=== PATIENT | female | born 1985 | race Caucasian/White ===

== ENCOUNTER 2016-07-31 14:07 | Emergency (ER) | payer BC ==
[~2016-07-31] VITALS: Ht 160 cm; Wt 62.0 kg
[~2016-07-31 14:07] MED LIST: BCPILLS PO
[2016-07-31 14:09] VITALS: Ht 160 cm; Wt 62.0 kg
[2016-07-31 16:16] VITALS: O2SAT 100
--- NOTE | 2016-07-31 16:28 | DIAGNOSTIC IMAGING REPORT ---
CHEST ONE VIEW PORTABLE CLINICAL HISTORY: Atypical chest pain and shortness of breath COMPARISON STUDY: No previous studies for comparison. FINDINGS: The cardiac and mediastinal contours are normal. There is no evidence of focal pulmonary consolidation. There is no evidence of failure. No pleural effusions are visualized.[ IMPRESSION: No active disease in the chest. Electronically signed by: Woody Martinez M.D. 07/31/2016 4:26 PM
[2016-07-31 16:34] LABS: HEMATOCRIT 40.4 % (37-47); MEAN CORPUSCULAR HEMOGLOBIN 31.7 pg (25-34); MEAN CORPUSCULAR HGB CONC 34.4 g/dl (32-36); MEAN PLATELET VOLUME 11.2 fL (7.4-10.4); PLATELET COUNT 187 K/uL (130-400); RED BLOOD COUNT 4.39 M/uL (4.2-5.4); WHITE BLOOD COUNT 9.34 K/uL (4.8-10.8)
--- NOTE | 2016-07-31 16:35 | EMERGENCY ROOM VISIT NOTE ---
History First contact with patient: 16:07 Chief Complaint: CHEST PAIN Stated Complaint: CHEST PAIN,SOB Nursing Triage Summary: pt c/o chest pain started at 1230 today. feels sob . denies any n/v. denies nay previous heart problems History of Present Illness The patient is a 31 year old female who presents to the Emergency Room with complaints of chest Pain started at 12:20 - patient was napping at the time, she is unsure if pain or waking came first Pain described as left-sided baseline tightness/discomfort, with occasional sharp knife-like pain lasting 5 -10 seconds that is associated with radiation to left arm and back. The sharpness comes on by any movement of shoulder, bending forward at the waist, ambulating and patient has even had a few episodes of sharp pain at rest. Sharp pain relieved by staying still. Episodes of pain have been associated with SOB, nausea and diaphoresis She is otherwise eating well and tolerating diet. No issues with bowel or urination. No personal cardiac history except for a regularly Irregular heart beat in childhood, not being followed up. Fam history significant for brothers x 2 with HTN. Never smoker, takes propranolol for migraine, zoloft fro depression No recent flight, although has had long commutes: drove 1.5hours to [facility] yesterday, and drove to [place] last week. No OCP/HRT. No DVT/PE history Leg doppler done a few months ago when admitted for bronchiolitis with CP secondary to coughing, and was on OCP at that time Review of Systems See HPI for pertinent positives and negatives. A total of ten systems were reviewed and were otherwise negative. Past Medical/Surgical History Medical Problems: (1) Contusion of left foot (2) Depression (3) Migraine headache Social History Smoking Status: Never Smoker Current/Historical Medications Scheduled Calcium Carbonate-Vitamin D (Calcium 500 + D), 1 TAB PO DAILY Magnesium (Magnesium), 200 MG PO DAILY Multiple Vitamins W/ Minerals (Womens One Daily), 1 TAB PO DAILY Propranolol (Inderal), 60 MG PO DAILY Sertraline (Zoloft), 50 MG PO DAILY Sumatriptan Succinate (Imitrex Statdose), 1 DOSE INH PRN UD Scheduled PRN Acetaminophen/Codeine (Tylenol W/Codeine #3), 1-2 TAB PO PRN UD PRN for Pain Ibuprofen (Motrin), 800 MG PO Q8H PRN for Pain Allergies Coded Allergies: Sulfamethoxazole w/Trimethoprim (Verified Allergy, Unknown, hives, 10/27/15 ) Uncoded Allergies: SULFA (Allergy, Unknown, HIVES, 08/23/03) Physical Exam Vital Signs Date Time Temp Pulse Resp B/P Pulse Ox O2 Delivery O2 Flow Rate FiO2 07/31/16 18:52 37.1 71 18 100/57 100 07/31/16 18:52 69 18 110/54 100 Room Air 07/31/16 16:21 71 07/31/16 16:18 37.1 64 18 100/57 100 Room Air 07/31/16 16:16 100 Room Air 07/31/16 16:13 64 18 100/57 100 Room Air 07/31/16 14:09 37.1 91 18 113/72 99 Room Air Physical Exam GENERAL: alert, well appearing, thin, sitting in bed, no acute distress, non- toxic HEAD: Normocephalic, atraumatic. No sinus tenderness. EYES: PERRL, EOMI, normal conjunctiva OROPHARYNX: no exudate, no erythema, lips, buccal mucosa, and tongue normal and mucous membranes are moist NECK: supple, no nuchal rigidity, no adenopathy, non-tender LUNGS: Clear to auscultation. Normal chest wall mechanics, good air entry. No crepitations, crackles, or wheezes HEART: no murmurs, S1 normal and S2 normal CHEST: Tenderness on palpation of left chest. ABDOMEN: abdomen soft, non-tender, normo-active bowel sounds, no masses, no rebound or guarding. BACK: Back is symmetrical on inspection, no deformities, no midline tenderness, no CVA tenderness. SKIN: Warm, pink, dry. No erythema, rashes, or bruising. EXTREMITIES: Grossly normal. Moving all 4 limbs, Chest pain exacerbated by shoulder abduction, flexion, internal and external rotation No pitting edema. Calves non tender. NEURO: Alert, Ox3. No focal deficits. Normal sensorium, cranial nerves II-XII grossly intact, normal speech. PSYCH: Mood and affect appropriate. Medical Decision & Procedures ER Provider Diagnostic Interpretation: CHEST ONE VIEW PORTABLE CLINICAL HISTORY: Atypical chest pain and shortness of breath COMPARISON STUDY: No previous studies for comparison. FINDINGS: The cardiac and mediastinal contours are normal. There is no evidence of focal pulmonary consolidation. There is no evidence of failure. No pleural effusions are visualized.[ IMPRESSION: No active disease in the chest. Laboratory Results 07/31/16 16:15 07/31/16 16:15 Test 07/31/16 16:15 07/31/16 16:53 07/31/16 17:47 Red Blood Count 4.39 M/uL (4.2-5.4) Mean Corpuscular Volume 92.0 fL (80-100) Mean Corpuscular Hemoglobin 31.7 pg (25-34) Mean Corpuscular Hemoglobin Concent 34.4 g/dl (32-36) RDW Standard Deviation 41.9 fL (36.4-46.3) RDW Coefficient of Variation 12.4 % (11.5-14.5) Mean Platelet Volume 11.2 fL (7.4-10.4) Prothrombin Time 10.0 SECONDS (9.0-12.0) Prothromb Time International Ratio 0.9 (0.9-1.1) Activated Partial Thromboplast Time 26.2 SECONDS (21.0-31.0) Partial Thromboplastin Ratio 1.0 Anion Gap 6.0 mmol/L (3-11) Est Creatinine Clear Calc Drug Dose 86.7 ml/min Estimated GFR () 118.4 Estimated GFR (Non- 102.2 BUN/Creatinine Ratio 15.9 (10-20) Calcium Level 8.4 mg/dl (8.5-10.1) Total Bilirubin 0.3 mg/dl (0.2-1) Aspartate Amino Transf (AST/SGOT) 14 U/L (15-37) Alanine Aminotransferase (ALT/SGPT) 28 U/L (12-78) Alkaline Phosphatase 93 U/L (45-117) Total Creatine Kinase 41 U/L (26-192) Creatine Kinase MB 0.7 ng/ml (0.5-3.6) Creatine Kinase MB Ratio 1.7 (0-3.0) Troponin I < 0.015 ng/ml (0-0.045) Total Protein 6.7 gm/dl (6.4-8.2) Albumin 3.5 gm/dl (3.4-5.0) Globulin 3.2 gm/dl (2.5-4.0) Albumin/Globulin Ratio 1.1 (0.9-2) Bedside D-Dimer 92 ng/mlFEU (0-450) Bedside Troponin I 0.000 ng/ml (0-0.045) Urine Color YELLOW Urine Appearance TURBID (CLEAR) Urine pH 7.5 (4.5-7.5) Urine Specific [place] 1.018 (1.000-1.030) Urine Protein NEG (NEG) Urine Glucose (UA) NEG (NEG) Urine Ketones NEG (NEG) Urine Occult Blood NEG (NEG) Urine Nitrite NEG (NEG) Urine Bilirubin NEG (NEG) Urine Urobilinogen NEG (NEG) Urine Leukocyte Esterase NEG (NEG) Urine WBC (Auto) 0 /hpf (0-5) Urine RBC (Auto) 0-4 /hpf (0-4) Urine Hyaline Casts (Auto) 1-5 /lpf (0-5) Urine Epithelial Cells (Auto) 20-30 /lpf (0-5) Urine Bacteria (Auto) NEG (NEG) Urine Test NEG (NEG) Medications Administered Medications (Trade) Dose Ordered Sig/Bri Route Start Time Stop Time Status Last Admin Dose Admin Ketorolac Tromethamine (Toradol Inj) 30 mg NOW STAT IV 07/31/16 16:57 07/31/16 16:58 DC 07/31/16 17:26 30 MG Medical Decision 31 year old female presented with left sided chest pain The patient was evaluated in room C11. A complete history and physical exam was performed. Differential diagnoses includes but is not limited to acute coronary syndrome, myocardial infarction, pericarditis, pulmonary embolus, aortic dissection, pneumonia, pneumothorax, musculoskeletal, shingles, esophageal. Patient was given 30mg IV Toradol for symptom relief. EKG showed showed NSR, without sign of ischemia, unchanged from previous studies. Lab work was performed. CBC, BMP, LFT, coagulation profile, cardiac enzymes, and d-dimer were all within normal limits. CXR reported no acute lung pathology Urine screen was negative for , and urinalysis showed contamination and no evidence of urinary infection. Likely diagnosis is musculoskeletal chest pain. As such, patient prescribed advised for conservative management with Tylenol or Motrin for pain relief and advised to follow up with PCP for shoulder assessment on outpatient basis. Patient understands and agreeable with care plan. Patient discharged home well. Impression Primary Impression: Musculoskeletal chest pain Departure Information Referrals Justus Pérez M.D. (PCP) Patient Instructions A Signature Page, My [facility]
[2016-07-31 16:46] LABS: INR 0.9 (0.9-1.1)
[2016-07-31 16:47] LABS: CHLORIDE 105 mmol/L (98-107); POTASSIUM 3.7 mmol/L (3.5-5.1); SODIUM 141 mmol/L (136-145)
[2016-07-31 16:52] LABS: ALT/SGPT 28 U/L (12-78); AST/SGOT 14 U/L (15-37); BLOOD UREA NITROGEN 12 mg/dl (7-18); BUN/CREATININE RATIO 15.9 (10-20); CALCIUM 8.4 mg/dl (8.5-10.1); CARBON DIOXIDE 30 mmol/L (21-32); CREATININE 0.77 mg/dl (0.60-1.20); GLUCOSE 71 mg/dl (70-99)
[2016-07-31 16:57] LABS: ALB/GLOB RATIO 1.1 (0.9-2); ALKALINE PHOSPHATASE 93 U/L (45-117); CKMB/CK RATIO 1.7 (0-3.0)
[2016-07-31] MEDS ORDERED: KETOROLAC TROMETHAMINE 30 MG/ML VIAL IV STA (16:57)
[2016-07-31] MEDS ORDERED: SUMA6KIT INH (17:12)
[2016-07-31] MEDS ORDERED: IBUP-1428 PO (17:12)
[2016-07-31] MEDS ORDERED: ACET-749 PO (17:12)
[2016-07-31 18:21] LABS: URINE APPEARANCE TURBID (CLEAR); URINE BILIRUBIN NEG (NEG); URINE COLOR YELLOW; URINE EPITHELIAL CELL AUTO 20-30 /lpf (0-5); URINE NITRITE NEG (NEG); URINE PH 7.5 (4.5-7.5); URINE SPECIFIC GRAVITY 1.018 (1.000-1.030); UROBILINOGEN NEG (NEG)
[2016-07-31 18:22] LABS: MANUAL MICROSCOPIC REQUIRED? NO; REVIEW REQ? NO
[2016-07-31] MEDS ORDERED: PROP1TAB PO (18:35)
[2016-07-31 18:52] VITALS: BP 110/54; PULSE 69; TEMP 37.1; O2SAT 100
[2016-07-31] MEDS ORDERED: MULT-240 PO (21:14)
[2016-07-31] MEDS ORDERED: MAGN200T3 PO (21:14)
[2016-07-31] MEDS ORDERED: CALCTAB65 PO (21:14)
[2016-07-31] MEDS ORDERED: SERT50TA PO (21:14)
--- NOTE | 2016-08-03 14:13 | EMERGENCY ROOM VISIT NOTE ---
History Report prepared by Thao: Cathy Hernandez Under the Supervision of: Dr. Erick Jaquez M.D. First contact with patient: 16:07 Chief Complaint: CHEST PAIN Stated Complaint: CHEST PAIN,SOB Nursing Triage Summary: pt c/o chest pain started at 1230 today. feels sob . denies any n/v. denies nay previous heart problems History of Present Illness The patient is a 31 year old female who presents to the Emergency Room with complaints of constant left sided chest pain for the past 4 hours. She was taking a nap and developed pain that woke her up. She notes shortness of breath , nausea, and diaphoresis. She describes her pain as a dull pressure and rates her current pain as a 1/10 in severity. Her pain is exacerbated by movement and ambulation. It radiates into her left shoulder and back. The patient denies abdominal pain, vomiting, fever, chills, headache, palpitations, chance of , and pain or swelling in her legs. She denies any significant cardiac history. She denies any recent long flights but notes some long commutes. She denies doing anything unusual to injure her chest. 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 A total of 10 systems reviewed and were otherwise negative. Past Medical & Surgical Medical Problems: (1) Contusion of left foot (2) Depression (3) Migraine headache Old medical records were reviewed. Nurse's notes were reviewed and I agree with. Family History FH: heart disease Hypertension Social History Smoking Status: Never Smoker Smokeless Tobacco Use: No Alcohol Use: occasionally Drug Use: none Marital Status: Housing Status: lives with family Occupation Status: employed Current/Historical Medications Scheduled Calcium Carbonate-Vitamin D (Calcium 500 + D), 1 TAB PO DAILY Magnesium (Magnesium), 200 MG PO DAILY Multiple Vitamins W/ Minerals (Womens One Daily), 1 TAB PO DAILY Propranolol (Inderal), 60 MG PO DAILY Sertraline (Zoloft), 50 MG PO DAILY Sumatriptan Succinate (Imitrex Statdose), 1 DOSE INH PRN UD Scheduled PRN Acetaminophen/Codeine (Tylenol W/Codeine #3), 1-2 TAB PO PRN UD PRN for Pain Ibuprofen (Motrin), 800 MG PO Q8H PRN for Pain Allergies Coded Allergies: Sulfamethoxazole w/Trimethoprim (Verified Allergy, Unknown, hives, 10/27/15 ) Uncoded Allergies: SULFA (Allergy, Unknown, HIVES, 08/23/03) Physical Exam Vital Signs Date Time Temp Pulse Resp B/P Pulse Ox O2 Delivery O2 Flow Rate FiO2 07/31/16 18:52 37.1 71 18 100/57 100 07/31/16 18:52 69 18 110/54 100 Room Air 07/31/16 16:21 71 07/31/16 16:18 37.1 64 18 100/57 100 Room Air 07/31/16 16:16 100 Room Air 07/31/16 16:13 64 18 100/57 100 Room Air 07/31/16 14:09 37.1 91 18 113/72 99 Room Air Physical Exam General: Well developed well nourished non ill appearing young female in no acute distress, breathing comfortably on room air. Normal speech HEENT: Normal cephalic atraumatic. Pupils are equal round and reactive to light. Extraocular movements are intact. Oropharynx is pink with moist mucous membranes. No swelling of the mouth lips or tongue. Neck: Supple with a midline trachea. No meningeal signs or stiffness, no JVD or bruits. No Stridor. Chest: Clear to auscultation bilaterally. No wheezes or rhonchi. No increased work of breathing. Tender to palpation of the left chest. Heart: regular rate and rhythm. Abdomen: Soft nontender, nondistended without rebound guarding or rigidity. Extremities: No cyanosis clubbing or edema. No calf tenderness or assymetry Spine/Back. Non tender to palpation. No CVA tenderness Skin: Good turgor without rashes. Neurologic exam: Cranial nerves two through 12 are intact. Motor and sensation are intact and symmetrical throughout. Medical Decision & Procedures ER Provider Diagnostic Interpretation: Radiology results as stated below per my review and radiologist interpretation: CHEST ONE VIEW PORTABLE CLINICAL HISTORY: Atypical chest pain and shortness of breath COMPARISON STUDY: No previous studies for comparison. FINDINGS: The cardiac and mediastinal contours are normal. There is no evidence of focal pulmonary consolidation. There is no evidence of failure. No pleural effusions are visualized.[ IMPRESSION: No active disease in the chest. Electronically signed by: Woody Martinez M.D. 07/31/2016 4:26 PM Laboratory Results 07/31/16 16:15 07/31/16 16:15 Test 07/31/16 16:15 07/31/16 16:53 07/31/16 17:47 Red Blood Count 4.39 M/uL (4.2-5.4) Mean Corpuscular Volume 92.0 fL (80-100) Mean Corpuscular Hemoglobin 31.7 pg (25-34) Mean Corpuscular Hemoglobin Concent 34.4 g/dl (32-36) RDW Standard Deviation 41.9 fL (36.4-46.3) RDW Coefficient of Variation 12.4 % (11.5-14.5) Mean Platelet Volume 11.2 fL (7.4-10.4) Prothrombin Time 10.0 SECONDS (9.0-12.0) Prothromb Time International Ratio 0.9 (0.9-1.1) Activated Partial Thromboplast Time 26.2 SECONDS (21.0-31.0) Partial Thromboplastin Ratio 1.0 Anion Gap 6.0 mmol/L (3-11) Est Creatinine Clear Calc Drug Dose 86.7 ml/min Estimated GFR () 118.4 Estimated GFR (Non- 102.2 BUN/Creatinine Ratio 15.9 (10-20) Calcium Level 8.4 mg/dl (8.5-10.1) Total Bilirubin 0.3 mg/dl (0.2-1) Aspartate Amino Transf (AST/SGOT) 14 U/L (15-37) Alanine Aminotransferase (ALT/SGPT) 28 U/L (12-78) Alkaline Phosphatase 93 U/L (45-117) Total Creatine Kinase 41 U/L (26-192) Creatine Kinase MB 0.7 ng/ml (0.5-3.6) Creatine Kinase MB Ratio 1.7 (0-3.0) Troponin I < 0.015 ng/ml (0-0.045) Total Protein 6.7 gm/dl (6.4-8.2) Albumin 3.5 gm/dl (3.4-5.0) Globulin 3.2 gm/dl (2.5-4.0) Albumin/Globulin Ratio 1.1 (0.9-2) Bedside D-Dimer 92 ng/mlFEU (0-450) Bedside Troponin I 0.000 ng/ml (0-0.045) Urine Color YELLOW Urine Appearance TURBID (CLEAR) Urine pH 7.5 (4.5-7.5) Urine Specific [place] 1.018 (1.000-1.030) Urine Protein NEG (NEG) Urine Glucose (UA) NEG (NEG) Urine Ketones NEG (NEG) Urine Occult Blood NEG (NEG) Urine Nitrite NEG (NEG) Urine Bilirubin NEG (NEG) Urine Urobilinogen NEG (NEG) Urine Leukocyte Esterase NEG (NEG) Urine WBC (Auto) 0 /hpf (0-5) Urine RBC (Auto) 0-4 /hpf (0-4) Urine Hyaline Casts (Auto) 1-5 /lpf (0-5) Urine Epithelial Cells (Auto) 20-30 /lpf (0-5) Urine Bacteria (Auto) NEG (NEG) Urine Test NEG (NEG) Laboratory studies as stated above per my review. Medications Administered Medications (Trade) Dose Ordered Sig/Bri Route Start Time Stop Time Status Last Admin Dose Admin Ketorolac Tromethamine (Toradol Inj) 30 mg NOW STAT IV 07/31/16 16:57 07/31/16 16:58 DC 07/31/16 17:26 30 MG ECG Indication: chest pain Rate (beats per minute): 58 Rhythm: sinus bradycardia Findings: no acute ischemic change, no ectopy, other (normal intervals) Comparison ECG Date: no prior available ED Course 1607: Past medical records reviewed. The patient was evaluated in room B12B, and a complete history and physical examination were performed. 1657: Toradol 30 mg IV 1814: I reassessed the patient at this time. She is feeling better and resting comfortably. I discussed the results and treatment plan with the patient. I answered all pertaining questions that she had. She expressed understanding and verbalized agreement. The patient will be discharged home. Medical Decision Differential diagnoses includes musculoskeletal, PE, acute coronary syndrome, arrhythmia, pneumothorax. This patient comes in as described above. She was placed on a magnetic tester in room B12. I have evaluated this patient as has my resident. Please also refer to her note as well. This patient has had some chest pain that is reproducible upon movement and palpation. She has minimal cardiac risk factors. IV access was established and an extensive workup was done to rule out cardiac, pulmonary, and embolic etiologies among other causes. EKG does not suggest acute coronary syndrome or arrhythmia. Cardiac enzymes are not elevated. In light of this, I think a cardiac event is highly unlikely. Her d- dimer is within normal limits and with a low pretest probability makes PE highly unlikely as well. Chest x-ray does not show any obvious to suggest congestive heart failure, pneumonia, or pneumothorax. She has no acute electrolyte or metabolic abnormalities. She is not . Most likely this is musculoskeletal. I encouraged her to return if she has worsening of symptoms , increasing pain, any new problems or concerns. She should also follow up with her doctor this week for recheck. She is happy with plan and discharged to home. Impression Primary Impression: Musculoskeletal chest pain Additional Impression: Costochondritis Scribe Attestation The scribe's documentation has been prepared under my direction and personally reviewed by me in its entirety. I confirm that the note above accurately reflects all work, treatment, procedures, and medical decision making performed by me. Departure Information Dispostion Home / Self-Care Referrals Justus Pérez M.D. (PCP) Forms HOME CARE DOCUMENTATION FORM, IMPORTANT VISIT INFORMATION Patient Instructions A Signature Page, ED Chest Wall Pain Tay Bronson, My [facility] Additional Instructions You were seen today in ED for chest pain. Clinical history and examination along with blood work to rule out more urgent conditions (such a coronary event or pulmonary embolism) have lead us to believe that your symptoms are likely secondary to musculoskeletal strain. As such, it is recommended that you use warm compress on the area as well as over the counter pain medication such as: - Regular strength (325mg/tab) Tylenol (acetaminophen) 2 tabs every 4-6 hours as needed. Do not exceed 12 tablets in a 24 hour period. Avoid taking more than 4 grams (4000 mg) of Tylenol per day. This includes any other sources of acetaminophen you may take on a regular basis. - Regular strength (200 mg/tab) Advil (ibuprofen) 1-2 tabs every 4-6 hours as needed. Do not exceed a dose of 3200 mg per day. Follow up with your PCP would be advisable in 1-2 weeks times, especially if there is no or minimal improvement in symptoms. In that scenario, further assessment of your chest wall/shoulder may be required on an outpatient basis. You have been examined and treated today on an emergency basis only. This is not a substitute for, or an effort to provide, complete comprehensive medical care. It is impossible to recognize and treat all injuries or illnesses in a single emergency department visit. It is therefore important that you make a follow up with your physician for close monitoring. Return for worsening symptoms or if you develop fever, vomiting, or any other concerning symptoms.
[2017-04-18] MEDS ORDERED: PRENTAB26 PO (10:45)
[2017-04-18] MEDS ORDERED: ACET-1311 PO (10:53)
[2017-04-20] MEDS ORDERED: OXYC-57 PO (07:52)
[2017-04-20] MEDS ORDERED: MTR600X PO (07:52)
== END 2016-07-31 18:53 | disposition home or self-care (01) ==
LOC: C.EDB 14:09
DX: R07.89 Other chest pain (principal); F32.9 Major depressive disorder, single episode, unspecified; Z79.899 Other long term (current) drug therapy

== ENCOUNTER → 2016-09-07 | Outpatient (CLI) | payer BC ==
[~2016-09-07] MED LIST changes: +ACET-1311 PO; +ACET-749 PO; -BCPILLS PO; +CALCTAB65 PO; +IBUP-1428 PO; +MAGN200T3 PO; +MTR600X PO; +MULT-240 PO; +OXYC-57 PO; +PRENTAB26 PO; +PROP1TAB PO; +SERT50TA PO; +SUMA6KIT INH
[2016-09-07 14:57] LABS: URINE APPEARANCE CLEAR (CLEAR); URINE BILIRUBIN NEG (NEG); URINE COLOR YELLOW; URINE NITRITE NEG (NEG); URINE PH 7.5 (4.5-7.5); URINE SPECIFIC GRAVITY 1.002 (1.000-1.030); UROBILINOGEN NEG (NEG)
[2016-09-07 15:02] LABS: MANUAL MICROSCOPIC REQUIRED? NO; REVIEW REQ? NO
[2016-09-11 11:57] LABS: CHLAMYDIA TRACH RNA*** NOT DETECTED (NOT DETECTED); GC (NEIS GONORRHOEAE)RNA** NOT DETECTED (NOT DETECTED)
== END | disposition home or self-care (01) ==
LOC: C.LABSPEC 14:16
PROVIDERS: ATTEND Obstetrics & Gynecology
DX: O09.621 Supervision of young multigravida, first trimester (principal); Z3A.00 Weeks of gestation of pregnancy not specified

== ENCOUNTER → 2016-09-07 | Outpatient (CLI) | payer BC ==
[2016-09-07 13:04] LABS: BASO % 0.4 %; BASO ABS # 0.04 K/uL (0-0.2); COMPLETE YES; EOS % 0.3 %; HEMATOCRIT 41.3 % (37-47); IG% 0.2 %; LYMPH % 36.6 %; LYMPH ABS # 3.26 K/uL (1.2-3.4); MEAN CORPUSCULAR HEMOGLOBIN 30.7 pg (25-34); MEAN CORPUSCULAR HGB CONC 34.1 g/dl (32-36); MEAN PLATELET VOLUME 11.3 fL (7.4-10.4); MONO % 7.6 %; NEUT % 54.9 %; PLATELET COUNT 205 K/uL (130-400); RED BLOOD COUNT 4.59 M/uL (4.2-5.4)
== END | disposition home or self-care (01) ==
LOC: C.LAB1850 11:43
PROVIDERS: ATTEND Obstetrics & Gynecology
DX: O09.621 Supervision of young multigravida, first trimester (principal); Z3A.00 Weeks of gestation of pregnancy not specified

== ENCOUNTER → 2016-11-09 | Outpatient (CLI) | payer BC ==
[2016-11-09 15:32] LABS: GTGD 50 Grams
== END | disposition home or self-care (01) ==
LOC: C.LAB1850 10:04
PROVIDERS: ATTEND Obstetrics & Gynecology
DX: Z34.82 Encounter for supervision of other normal pregnancy, second trimester (principal)

== ENCOUNTER → 2017-02-01 | Outpatient (CLI) | payer BC ==
[2017-02-01 12:18] LABS: URINE APPEARANCE CLEAR (CLEAR); URINE BILIRUBIN NEG (NEG); URINE COLOR DK YELLOW; URINE EPITHELIAL CELL AUTO >30 /lpf (0-5); URINE NITRITE NEG (NEG); URINE PH 7.5 (4.5-7.5); URINE SPECIFIC GRAVITY 1.023 (1.000-1.030); UROBILINOGEN NEG (NEG)
[2017-02-01 12:22] LABS: MANUAL MICROSCOPIC REQUIRED? NO; REVIEW REQ? NO
[2017-02-01 14:12] LABS: GTGD 50 Grams
== END | disposition home or self-care (01) ==
LOC: C.LAB1850 09:33
PROVIDERS: ATTEND Obstetrics & Gynecology
DX: Z34.83 Encounter for supervision of other normal pregnancy, third trimester (principal)

== ENCOUNTER → 2017-03-29 | Outpatient (CLI) | payer BC | END | disposition home or self-care (01) | LOC: C.LABSPEC 13:55 | PROVIDERS: ATTEND Obstetrics & Gynecology | DX: Z34.83 Encounter for supervision of other normal pregnancy, third trimester (principal) ==

== ENCOUNTER 2017-04-19 05:28 | Inpatient (IN) | payer BC ==
--- NOTE | 2017-04-18 11:21 | PAT Medication Instructions ---
Service Date Apr 18, 2017. Current Home Medication List Acetaminophen (Tylenol), 650 MG PO prn Acetaminophen/Codeine (Tylenol W/Codeine #3), 1-2 TAB PO PRN UD PRN for Pain Calcium Carbonate-Vitamin D (Calcium 500 + D), 1 TAB PO QAM Magnesium (Magnesium), 200 MG PO QAM Multivit/Min/Iron/Fol Ac/Pren ( Vitamin), 1 TAB PO QAM Medication Instructions For Your Scheduled Surgery - Hold the following medications the morning of surgery: Calcium Carbonate-Vitamin D (Calcium 500 + D), 1 TAB PO QAM Magnesium (Magnesium), 200 MG PO QAM Multivit/Min/Iron/Fol Ac/Pren ( Vitamin), 1 TAB PO QAM - Take the following medications the morning of surgery with a sip of water: Acetaminophen (Tylenol), 650 MG PO prn (can take if needed up to 4 hours before surgery) Acetaminophen/Codeine (Tylenol W/Codeine #3), 1-2 TAB PO PRN UD PRN for Pain ( can take if needed up to 4 hours before surgery) - Take the following medications as scheduled the night before surgery: Acetaminophen (Tylenol), 650 MG PO prn Acetaminophen/Codeine (Tylenol W/Codeine #3), 1-2 TAB PO PRN UD PRN for Pain If you have any questions please call us at [phone] or [phone] or [phone]
[2017-04-18 11:52] LABS: BASO % 0.1 %; BASO ABS # 0.01 K/uL (0-0.2); COMPLETE YES; EOS % 0.4 %; HEMATOCRIT 33.4 % (37-47); IG% 0.2 %; LYMPH % 26.7 %; LYMPH ABS # 2.17 K/uL (1.2-3.4); MEAN CELL VOLUME 84.1 fL (80-100); MEAN CORPUSCULAR HEMOGLOBIN 26.2 pg (25-34); MEAN CORPUSCULAR HGB CONC 31.1 g/dl (32-36); MEAN PLATELET VOLUME 12.2 fL (7.4-10.4); MONO % 6.9 %; NEUT % 65.7 %; PLATELET COUNT 150 K/uL (130-400); RED BLOOD COUNT 3.97 M/uL (4.2-5.4); WHITE BLOOD COUNT 8.12 K/uL (4.8-10.8)
--- NOTE | 2017-04-18 17:55 | HISTORY & PHYSICAL EXAMINATION ---
DATE OF ADMISSION: 04/19/2017 PRINCIPAL DIAGNOSIS: Intrauterine at 39 weeks, prior section x3, for repeat section with bilateral tubal ligation. HISTORY OF PRESENT ILLNESS: The patient is a 31-year-old 4, para 3-0-0-3 white female, EDC of 04/24/2017 who presents at 39 and 2/7 weeks for repeat section. She is also requesting permanent sterilization for undesired fertility and multiparity. Her otherwise has been uncomplicated except for the prior 3 sections. She understands the risks of procedure and is willing to proceed. PAST MEDICAL HISTORY: Significant for depression, but not on any meds at this time. Migraine headaches without any prescription meds. PAST SURGICAL HISTORY: section x3, the most recent in 2013. Laparoscopic ovarian cystectomy and wisdom teeth removed. ALLERGIES: SULFA MEDICATIONS, WHICH CAUSE SWELLING. SOCIAL HISTORY: She does not smoke or drink. OBSTETRICAL AND GYNECOLOGICAL HISTORY: Periods are every 35 days and regular. Pap smears have been within normal limits. There is no history of PID, VD or herpes. Three sections, the first one was done in 2009 for failure to progress and then repeat cesareans at 41 weeks on her following 2 pregnancies. HISTORY: Blood type is O positive. Antibody screen is negative. Rubella is immune. RPR is nonreactive. Hepatitis is negative. HIV is negative. dates were confirmed by early first trimester ultrasound. Chlamydia and GC were negative. Glucolas have been within normal limits. Anatomy scan is complete and normal. Hemoglobin at 28 weeks is 12.3, hematocrit of 37.0. Group B strep was positive. FAMILY HISTORY: Noncontributory. PHYSICAL EXAMINATION: VITAL SIGNS: Blood pressure is 130/78. GENERAL: She is a well-nourished, well-developed white female in no apparent distress. LUNGS: Clear to auscultation. HEART: Regular rate and rhythm. No murmurs or gallops. ABDOMEN: Gravid with a fundal height of 36 cm. There is no hepatosplenomegaly or masses palpable. She has a well-healed low transverse skin incision. PELVIC: Deferred today. EXTREMITIES: With trace edema. No calf tenderness present. ASSESSMENT: A 31-year-old 4, para 3-0-0-3, prior section x3, presents for repeat section and bilateral tubal ligation. She understands the risks of procedure and is willing to proceed. Please see the orders for further directions.
[2017-04-19] VITALS (15 sets, daily range): BP systolic 109–128; BP diastolic 62–77; PULSE 44–60; TEMP 36.3–36.6; O2SAT 98–100; Ht 152.4 cm; Wt 77.3 kg
[~2017-04-19] VITALS: Ht 152.4 cm; Wt 77.3 kg
[~2017-04-19 05:28] MED LIST changes: -IBUP-1428 PO; -MTR600X PO; -MULT-240 PO; -OXYC-57 PO; -PROP1TAB PO; -SERT50TA PO; -SUMA6KIT INH
[2017-04-19] MEDS ORDERED: CITRIC ACID/SODIUM CITRATE 15 ML UDC PO STA (05:47)
[2017-04-19] MEDS ORDERED: CEFAZOLIN IV 2,000 MG in DEXTROSE 5% 50ML 50 ML IV SCH (06:00)
[2017-04-19] MEDS: LACTATED RINGER'S 1000ML 1,000 ML IV SCH ×2 (06:09→15:38)
[2017-04-19 06:27] LABS: BASO % 0.2 %; BASO ABS # 0.02 K/uL (0-0.2); COMPLETE YES; EOS % 0.7 %; HEMATOCRIT 37.3 % (37-47); IG% 0.4 %; LYMPH % 33.8 %; LYMPH ABS # 2.89 K/uL (1.2-3.4); MEAN CELL VOLUME 83.4 fL (80-100); MEAN CORPUSCULAR HEMOGLOBIN 25.7 pg (25-34); MEAN CORPUSCULAR HGB CONC 30.8 g/dl (32-36); MEAN PLATELET VOLUME 11.7 fL (7.4-10.4); MONO % 9.3 %; NEUT % 55.6 %; PLATELET COUNT 164 K/uL (130-400); RED BLOOD COUNT 4.47 M/uL (4.2-5.4); WHITE BLOOD COUNT 8.54 K/uL (4.8-10.8)
[2017-04-19] MEDS ORDERED: INFLUENZA VIRUS QUAD VACCINE 0.5 ML SYR IM. ONE (06:30)
[2017-04-19] MEDS ORDERED: INFLUENZA ADMINISTRATION CHARGE ONE (06:30)
[2017-04-19] MEDS ORDERED: ONDANSETRON INJ 2 MG/ML 2 ML VIAL ONE (06:50)
[2017-04-19] MEDS ORDERED: OXYTOCIN INJ 10 UNITS/ML VIAL ONE (06:50)
[2017-04-19] MEDS ORDERED: PHENYLEPHRINE HCL INJ 10 MG/ML VIAL ONE (06:50)
[2017-04-19] MEDS ORDERED: MoRPHine SULFATE PF 1 MG/ML 10 ML AMP/VIAL ONE (06:51)
--- NOTE | 2017-04-19 07:26 | History & Physical Bridge Note ---
H&P Re-Evaluation Bridge Note: I have examined the patient, reviewed the History & Physical and in the interval since the performance of the History & Physical I have noted the following changes of clinical significance: No changes noted
[2017-04-19] MEDS ORDERED: EpHEDrine SULFATE 50MG/5ML SYR ONE (08:36)
[2017-04-19] MEDS ORDERED: KETOROLAC TROMETHAMINE 30 MG/ML VIAL ONE (08:39)
--- NOTE | 2017-04-19 08:54 | [facility] Post Operative Brief Note ---
Immediate Operative Summary Operative Date Apr 19, 2017. Pre-Operative Diagnosis 1. IUP at 39 weeks, prior section X 3; for repeat section with bilateral tubal ligation. Post-Operative Diagnosis same Procedure(s) Performed Repeat section with bilateral tubal ligation; with the of a live femal child at 0817. Surgeon Dr. Gibson Assessment Manager Surgeon(s) Dr. Yareli Cota Estimated Blood Loss 400 ml Findings DELIVERED A VIABLE FEMALE INFANT, APGARS 8,9 WEIGHT PENDING. NORMAL UTERUS, FALLOPIAN TUBES BILATERALLY. Fluids (cc crystalloids) 1000 ML Specimens A; placenta B; Cord blood C; portions of left and right fallopian tubes Drains KAY TO STRAIGHT DRAINAGE, CLEAR URINE AT END OF CASE. Anesthesia SPINAL Complication(s) None Disposition Recovery Room / PACU
[2017-04-19] MEDS: SIMETHICONE 80 MG CHEW PO SCH ×4 (09:00→20:56)
[2017-04-19] MEDS ORDERED: ONDANSETRON INJ 2 MG/ML 2 ML VIAL IV PRN ×3 (09:00→09:30)
[2017-04-19] MEDS ORDERED: SENNA 8.6 MG TAB PO PRN (09:00)
[2017-04-19] MEDS ORDERED: SUPERCREAM 0.870 % 15GM JAR EXT PRN (09:00)
[2017-04-19] MEDS ORDERED: MAGNESIUM HYDROXIDE SUSP 30 ML UDC PO PRN (09:00)
[2017-04-19] MEDS ORDERED: BENZOCAINE 20% AER SPR 82.5 GM CAN EXT PRN (09:00)
[2017-04-19] MEDS ORDERED: PROMETHAZINE HCL INJ 25 MG in SODIUM CHLORIDE 0.9% 50ML 50 ML IV PRN (09:00)
[2017-04-19] MEDS ORDERED: LANOLIN OINT EXT PRN ×2 (09:00)
[2017-04-19] MEDS ORDERED: HYDROCORTISONE ACETATE 25 MG SUPP PR PRN (09:00)
[2017-04-19] MEDS ORDERED: NALOXONE HCL INJ 1 MG in SODIUM CHLORIDE 0.9% 1000ML 1,000 ML IV PRN (09:17)
[2017-04-19] MEDS ORDERED: SODIUM CHLORIDE 0.9% 1000ML 1,000 ML IV PRN (09:17)
[2017-04-19] MEDS ORDERED: LACTATED RINGER'S 1000ML 500 ML IV PRN (09:17)
[2017-04-19] MEDS ORDERED: NALOXONE HCL INJ 0.08 MG in SYRINGE 1.8 ML IV PRN (09:17)
--- NOTE | 2017-04-19 09:17 | Anesthesiology Progress Note ---
Anesthesia Post Op Note Date & Time Apr 19, 2017 at 09:17 Notes Mental Status: alert / awake / arousable, participated in evaluation Pt Amnestic to Procedure: Yes Nausea / Vomiting: adequately controlled Pain: adequately controlled Airway Patency, RR, SpO2: stable & adequate BP & HR: stable & adequate Hydration State: stable & adequate Neuraxial Anesthesia: was administered, sensory block is resolving Anesthetic Complications: no major complications apparent
[2017-04-19] MEDS ORDERED: NALBUPHINE HCL INJ 10 MG/ML AMP IV PRN (09:30)
[2017-04-19] MEDS ORDERED: EpHEDrine SULFATE INJ 50 MG/ML AMP IV PRN ×2 (09:30)
[2017-04-19] MEDS ORDERED: NALOXONE HCL 0.4 MG/1 ML VIAL/CARP IV PRN (09:30)
[2017-04-19] MEDS ORDERED: KETOROLAC TROMETHAMINE 30 MG/ML VIAL IV. PRN (09:30)
[2017-04-19] MEDS ORDERED: MoRPHine SULFATE PF 1 MG/ML 10 ML AMP/VIAL INT SPINAL PRN (09:30)
[2017-04-19] MEDS ORDERED: DC INTRASPINAL MORPHINE SCH (09:30)
[2017-04-19] MEDS ORDERED: NO NARCOTICS OR SEDATIVES SCH (09:30)
[2017-04-19] MEDS ORDERED: ATROPINE SULFATE 0.1 MG/ML 5ML SYR IV PRN (09:30)
[2017-04-19] MEDS ORDERED: DiphenhydrAMINE HCL 50 MG/ML VIAL IV PRN (09:30)
--- NOTE | 2017-04-19 10:02 | OPERATIVE REPORT ---
DATE OF OPERATION: 04/19/2017 PREOPERATIVE DIAGNOSES: Intrauterine at 39 weeks, multiparity and unwanted fertility, section x3. POSTOPERATIVE DIAGNOSIS: Same. PROCEDURE: Repeat low transverse cervical section and bilateral modified Redkey tubal ligation. SURGEON: Dr. Stephanie Schultz. LINE REPAIRER: Dr. Yareli Cota, PGY1. ESTIMATED BLOOD LOSS: 400 mL. ANESTHESIA: Subarachnoid block. HISTORY OF PRESENT ILLNESS: The patient is a 31-year-old 4, para 3-0-0-3 white female, EDC 04/24/2017 who presents at 39 weeks for repeat section. She is also requesting permanent sterilization because of unwanted fertility and multiparity. She understands the risks for both procedures and she is willing to proceed. GROSS FINDINGS: Uterus is gravid and consistent with a term in size. Bilateral ovaries and fallopian tubes are grossly normal. PROCEDURE: After the patient received adequate subarachnoid block, she was prepped and draped in the usual sterile fashion. A low transverse skin incision was made through a prior scar and carried to the fascia with the same scalpel. The fascial incision was then extended with Jaimes scissors. The edges were then grasped with Jorge Luis clamps and the underlying rectus muscles bluntly and sharply dissected off the overlying fascia. The bladder was taken down off after entering the peritoneum sharply. The rectus muscles were divided with Metzenbaum scissors. The peritoneum was then elevated and entered sharply and the bladder taken down placed behind the bladder blade. The lower uterine segment was entered with the scalpel and extended transversely. Membranes were ruptured for copious amount of clear fluid. The was delivered from the double footling breech presentation with delivery of the head. She was noted to have a double nuchal cord which was reduced after the head was delivered. Mouth and nasopharynx were suctioned on the field. Cord was clamped and cut and the infant was handed off to Dr. Tom who was in attendance as air moving technician. There was vigorous crying and the infant was moving all 4 limbs. The placenta was expressed intact with a 3-vessel cord. Some retained membranes were removed with a Sharon clamp. At this point, the uterine cavity was noted to be clear of any tissue. The uterus was then closed in running locking imbricating fashion with 0 Monocryl. Hemostasis was excellent. Attention was then turned to the tubal. The left fallopian tube was identified, followed to its fimbriated end and was then grasped in the mid portion with a Carissa clamp. A knuckle of tube was developed with a tie of 3-0 plain catgut followed by suture ligature of the same. The knuckle of tube was then removed and the remaining ends of the tubes were cauterized. The right fallopian tube was then identified and followed to its fimbriated end and was then grasped in the mid portion with a [place] clamp. A knuckle of tube was developed with a tie of 3-0 plain catgut followed by suture-ligature of the same. The knuckle of tube was then removed and the remaining ends of the tube were cauterized with the Bovie. Hemostasis was noted to be excellent at tubal sites and at the uterine incision. The posterior cul-de-sac was then irrigated for a small amount of normal saline. The uterus was then gently placed back inside the abdominal cavity. The tubal sites were examined once more and continued to have excellent hemostasis. The uterine incision also continued to have excellent hemostasis. The gutters were cleared of some fluid and the rectus muscles were then closed in individual stitches of 0 Monocryl. The fascia was closed in a running fashion with 0 Vicryl. The adipose layer was then irrigated with normal saline and then the skin edges were reapproximated using a subcuticular stitch of 4-0 Vicryl. Urine was clear at the end of the case. The patient tolerated the procedure well and was stable upon arrival in PACU. I attest to the content of the Intraoperative Record and any orders documented therein. Any exception s are noted below.
[2017-04-19] MEDS: MoRPHine SULFATE 2 MG/ML CARP IV PRN ×2 (11:29→19:30)
[2017-04-19] MEDS: OXYTOCIN INJ 20 UNITS in LACTATED RINGER'S 1000ML 1,000 ML IV SCH ×2 (14:11→22:33)
[2017-04-19] MEDS: KETOROLAC TROMETHAMINE 30 MG/ML VIAL IV. PRN ×2 (15:17→21:14)
[2017-04-19] MEDS: DOCUSATE SODIUM 100 MG CAP PO SCH (20:56)
[2017-04-20 00:30] VITALS: O2SAT 100
[2017-04-20 01:30] VITALS: O2SAT 100
[2017-04-20] MEDS ORDERED: OXYCODONE/ACETAMINOPHEN 5-325 TAB PO PRN (02:01)
[2017-04-20] MEDS ORDERED: DiphenhydrAMINE HCL 50 MG/ML VIAL IV PRN (02:01)
[2017-04-20] MEDS ORDERED: ZOLPIDEM TARTRATE 5 MG TAB PO PRN (02:01)
[2017-04-20] MEDS ORDERED: MEPERIDINE HCL 50 MG/ML CARP IV PRN ×2 (02:01)
[2017-04-20 04:15] VITALS: BP 111/66; PULSE 66; TEMP 36.8; O2SAT 100
[2017-04-20] MEDS: IBUPROFEN 600 MG TAB PO PRN ×3 (04:39→19:38)
[2017-04-20] MEDS: OXYCODONE/ACETAMINOPHEN 5-325 TAB PO PRN ×3 (04:39→19:38)
[2017-04-20 06:44] LABS: BASO % 0.2 %; BASO ABS # 0.02 K/uL (0-0.2); COMPLETE YES; EOS % 0.9 %; HEMATOCRIT 32.4 % (37-47); IG% 0.2 %; LYMPH % 24.6 %; LYMPH ABS # 2.16 K/uL (1.2-3.4); MEAN CELL VOLUME 82.2 fL (80-100); MEAN CORPUSCULAR HEMOGLOBIN 26.1 pg (25-34); MEAN CORPUSCULAR HGB CONC 31.8 g/dl (32-36); MEAN PLATELET VOLUME 11.7 fL (7.4-10.4); MONO % 12.1 %; PLATELET COUNT 139 K/uL (130-400); RED BLOOD COUNT 3.94 M/uL (4.2-5.4); WHITE BLOOD COUNT 8.78 K/uL (4.8-10.8)
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
[2017-04-20] MEDS ORDERED: MTR600X PO (07:52)
[2017-04-20] MEDS ORDERED: OXYC-57 PO (07:52)
--- NOTE | 2017-04-20 07:53 | Discharge Instructions ---
Discharge Instructions Date of Service Apr 20, 2017. Admission Reason for Admission: Previous Section, Desires Sterilization Discharge Discharge Diagnosis / Problem: recovery from repeat & tubal Discharge Goals Goal(s): Routine recovery after Medications Continue Dispensed Medications: lansinoh Activity Recommendations Activity Limitations: per Instructions/Follow-up section . Instructions / Follow-Up Instructions / Follow-Up ACTIVITY RECOMMENDATIONS: * Gradual return to full activity over the next 2-3 weeks. * No lifting - nothing heavier than baby over the next 2-3 weeks. * Do not engage in vigorous exercise, sexual activity or sports until cleared by your physician. * Do not drive or operate any motorized equipment until cleared by your physician. * You may shower/bathe daily. MEDICATIONS: For discomfort or pain, you may use Acetaminophen (Tylenol), Ibuprofen (Advil), or Naproxen (Aleve) following the package directions. For constipation you may use Colace following the package directions. BREAST CARE: If you are not breast feeding: * Wear a supportive bra 24 hours a day for one to two weeks. * Avoid stimulating your breasts and nipples as much as possible during the first few weeks after delivery. * When taking a shower, have the warm water hit your back, not breasts. * When your breasts feel full, apply ice packs. Usually three to four times a day helps ease the discomfort. * Take a mild pain medication (Tylenol / Motrin) when you are uncomfortable. If breast feeding: * Use breast milk to lubricate nipples. Lansinoh cream may be used for sore nipples. You do not need to remove cream prior to breast feeding. If using a different brand of cream, check the label for directions regarding removal of cream prior to nursing. * Wear a supportive bra. * If having problems with breasts or breast feeding, call a otm consultant or your health care provider. SPECIAL CARE INSTRUCTIONS: When you are discharged from the hospital, it is important for you to follow the instructions listed below: * During the first week at home, you should be able to care for yourself and your baby. In addition, the usual light household activities are encouraged. * Limit your activities to the way you feel. Do not try to clean the house or move furniture. Be sensible. * If you actively engage in sports and have done so up until the time of your delivery, you may resume these activities as soon as you feel able. This may take up to one month or even longer. Use good judgment. * Continue to take your vitamins for at least six weeks after the of your baby. * Your diet need not be limited unless you were on a special diet before your delivery. Breast-feeding mothers need around 2500 calories per day and at least 64-80 ounces of fluid per day (8 to 10 glasses). * You should eat foods from the four major food groups. Crash diets or fad diets are to be avoided. Eating lean meats, fresh fruits and vegetables, low-fat dairy products, high fiber foods and a regular exercise program, will help you get back to your pre- weight without putting your health at risk. * Constipation is sometimes a problem after delivery. Take a mild laxative as needed. If breast feeding, Milk of Magnesia is acceptable to use. You may use a suppository or Fleets enema. * A daily shower or tub bath is suggested. Wash incision daily with warm soapy water and pat dry. It doesn't need to be covered unless drainage is present. * A bloody vaginal discharge will usually continue until around four weeks . A small amount of bleeding may continue for as long as six weeks. Vaginal discharge changes from the bright red bleeding after delivery to pink then brownish and finally yellowish-pink before becoming white and disappearing. * Bleeding may increase with activity. Your first period may come in 4-8 weeks. If you are breast feeding, your period may be delayed even longer. * Cross[place] (sex) can begin whenever both you and your partner feel comfortable and do not have any form of genital infection. It is recommended that you wait at least six weeks for internal and external healing to occur. If you have questions, please talk to your health care practitioner. A condom should be used to prevent infection and . * Foreplay, gentle intercourse and lubrication is very important the first several times to prevent pain. A water-based lubricant such as K-Y jelly or Astroglide may be used. * If you have RH negative blood and your baby is RH positive, you will receive RHOGAM by injection prior to discharge. The nurse will give you a card to keep with you that has the date and place that you received RHOGAM after delivery. * During your care, you had a Rubella screen done to check for the presence of rubella antibodies in your blood. If your test was negative, you will receive a Rubella vaccine prior to discharge. This vaccine may cause a fever, soreness at the injection site and flu-like symptoms. If these symptoms persist, notify your health care practitioner. is not advised for one month after a Rubella vaccine. * Verbalizes understanding of car seat law as reviewed with patient nursing. * Car Seat hand-out given and reviewed with patient by nursing. * Shaken baby information reviewed with patient by nursing. Call you doctor if: * Heavy bleeding (saturating several pads an hour) or passing clots the size of your fist. * A fever >101 degrees F (38.3 degrees C) on two occasions four hours apart and /or chills. * Unusual pain in the pelvic or vaginal areas. * Call the doctor for any increased redness, drainage or swelling around the incision and any pain unrelieved by prescribed pain medication. * "Baby Blues" lasting longer than two weeks. If you have any questions or concerns, call your health care practitioner at . FOLLOW UP VISIT: * Please call the office at to schedule a 6 week examination. It is important you keep this appointment. It is important for you to make arrangements for either yearly or twice yearly check-ups thereafter. Current Hospital Diet Patient's current hospital diet: Regular OB Diet Discharge Diet Recommended Diet: Regular OB Diet Procedures Procedures Performed: Repeat section with bilateral tubal ligation; with the of a live femal child at 0817. Pending Studies Studies pending at discharge: no Medical Emergencies . Who to Call and When: Medical Emergencies: If at any time you feel your situation is an emergency, please call [phone] immediately. . Non-Emergent Contact Non-Emergency issues call your: Management Intern . . "Provider Documentation" section prepared by Stephanie Herndon. . VTE Core Measure Inpt VTE Proph given/why not?: Treatment not indicated
[2017-04-20] MEDS ORDERED: PRENATAL VITAMIN TAB PO SCH (08:00)
[2017-04-20] MEDS: FERROUS SULFATE 325 MG TAB PO SCH (08:23)
[2017-04-20] MEDS: PRENATAL VITAMIN TAB PO SCH (08:24)
[2017-04-20] MEDS: DOCUSATE SODIUM 100 MG CAP PO SCH ×2 (08:24→20:37)
[2017-04-20] MEDS: SIMETHICONE 80 MG CHEW PO SCH ×4 (08:24→20:37)
[2017-04-20 08:25] VITALS: BP 109/67; PULSE 71; TEMP 36.6; O2SAT 100
[2017-04-20 15:45] VITALS: BP 121/72; PULSE 71; TEMP 36.8; O2SAT 98
[2017-04-20] MEDS ORDERED: BISACODYL 5 MG TABEC PO ONE (21:00)
[2017-04-20 23:45] VITALS: BP 118/61; PULSE 58; TEMP 36.8; O2SAT 98
[2017-04-21] MEDS: IBUPROFEN 600 MG TAB PO PRN ×3 (00:11→09:12)
[2017-04-21] MEDS: OXYCODONE/ACETAMINOPHEN 5-325 TAB PO PRN ×3 (00:12→09:12)
[2017-04-21 07:50] VITALS: BP 110/69; PULSE 57; TEMP 36.7
[2017-04-21 08:24] LABS: HEMATOCRIT 32.5 % (37-47)
--- NOTE | 2017-04-21 08:28 | Progress Note ---
Subjective Apr 21, 2017. Subjective conversation w/ patient, physical exam, chart review, lab review Ambulation: ambulating normally Voiding: no voiding problems Passing Gas: Yes Diet Tolerance: Regular Diet Lochia: Moderate Feeding Type: Breast Feeding Pain: controlled Review of Systems Respiratory: No shortness of breath Cardiac: No chest pain Abdomen: No nausea, No vomiting Female : No dysuria Objective Vital Signs Date Time Temp Pulse Resp B/P (MAP) Pulse Ox O2 Delivery O2 Flow Rate FiO2 04/20/17 23:45 98 Room Air 04/20/17 23:45 36.8 58 20 118/61 (80) 98 Room Air 04/20/17 15:45 36.8 71 20 121/72 (88) 98 Room Air 04/20/17 15:45 Room Air Physical Exam General Appearance: WELL-APPEARING, WD/WN, NO APPARENT DISTRESS Respiratory/Chest: lungs clear, normal breath sounds, no respiratory distress Cardiovascular: regular rate, rhythm, no gallop Abdomen: normal bowel sounds, soft Fundus: Firm, Non-Tender, Relation to Umbilicus (2 below U) Incision Description: Clean, Dry & Intact Extremities: no calf tenderness Laboratory Results Last 24 Hours Test 04/21/17 08:10 Hemoglobin 10.3 g/dL Hematocrit 32.5 % Assessment and Plan Post-Op Day#: 2 Continue Routine Care: - Vital Signs reviewed and WNL.. - Hgb 10.3 (on admission was 10.4. Yesterday was 10.3.) - Blood Type: O+, GBS + , Rubella Immune. - Pt is doing well clinically. - Monitor and Control pain with Motrin PRN, resume regular diet as tolerated, Monitor Lochia. - Encourage breast feeding. - Pt counselled on discharge instructions. DENISSE COTA PGY1 FM RESIDENT Resident Physician Supervision Note: I was present with Dr. Cota during the history and exam. I discussed the case with the resident and agree with the findings and plan as documented in the note. Any exceptions or clarifications are listed here: POD#2 doing well. Discharge to home today. Documented By: Kathi Prieto Resident Tracking Resident Involvement: Resident Care Provided Care Provided: OB Delivery
[2017-04-21] MEDS ORDERED: BISACODYL 10 MG SUPP PR PRN (09:00)
[2017-04-21] MEDS: DOCUSATE SODIUM 100 MG CAP PO SCH (09:11)
[2017-04-21] MEDS: FERROUS SULFATE 325 MG TAB PO SCH (09:11)
[2017-04-21] MEDS: PRENATAL VITAMIN TAB PO SCH (09:11)
[2017-04-21] MEDS: SIMETHICONE 80 MG CHEW PO SCH ×2 (09:12→12:34)
[2017-04-21 12:54] VITALS: BP_DIAS 69; PULSE 57; TEMP 36.7
--- NOTE | 2017-04-27 18:54 | DISCHARGE SUMMARY ---
PRINCIPAL DIAGNOSIS: Intrauterine at 39 weeks, prior section x3. PRINCIPAL PROCEDURE: Repeat low transverse cervical section and bilateral tubal ligation. HISTORY OF PRESENT ILLNESS: The patient is a 31-year-old 4, para 3-0-0-3 white female who presented for repeat section. She also was requesting permanent sterilization because of unwanted fertility and multiparity. She underwent the section and tubal ligation without any complications. She had an uncomplicated postop course. She was eating regular diet the day of her surgery and continued to progress in her ambulation and she was able to void without difficulty. She remained afebrile throughout her hospital stay. Hemoglobin was 10.4, hematocrit 33.4. First postop day hemoglobin 11.5, hematocrit 37.3. She was sent home in good condition with prescriptions for Percocet 1-2 tablets p.o. q.4 hours p.r.n. pain, Motrin 600 mg p.o. q.4 hours p.r.n. pain. She is to call for a followup visit in 6 weeks. She is to call if she has a temperature of 101 degrees or higher, heavy vaginal bleeding, burning with urination, increased redness, drainage or pain in her incision or any other concerns. BANDAR
== END 2017-04-21 13:00 | disposition home or self-care (01) | DRG 766 ==
LOC: C.LD 05:28 → EDSTATUS 07:30 → C.MS4N 10:51
PROVIDERS: ADMIT Obstetrics & Gynecology; ATTEND Obstetrics & Gynecology
PROC: 10D00Z1 Extraction of Products of Conception, Low, Open Approach (ICD-10-PCS; principal; 2017-04-19 07:30)
PROC: 0UL70ZZ Occlusion of Bilateral Fallopian Tubes, Open Approach (ICD-10-PCS; principal; 2017-04-19 07:30)
DX: O34.211 Maternal care for low transverse scar from previous cesarean delivery (principal); Z30.2 Encounter for sterilization; O99.824 Streptococcus B carrier state complicating childbirth; O69.81X0 Labor and delivery complicated by cord around neck, without compression, not applicable or unspecified; Z3A.39 39 weeks gestation of pregnancy; Z37.0 Single live birth

== ENCOUNTER 2017-07-19 22:36 | Emergency (ER) | payer BC ==
[~2017-07-19] VITALS: Ht 160 cm; Wt 67.9 kg
[~2017-07-19 22:36] MED LIST changes: -ACET-749 PO; +MTR600X PO; +OXYC-57 PO
[2017-07-19 22:38] VITALS: BP 129/97; PULSE 69; TEMP 36.4; O2SAT 96; Ht 160 cm; Wt 67.9 kg
[2017-07-19] MEDS ORDERED: ACETAMINOPHEN 500 MG TAB PO STA (22:46)
[2017-07-19] MEDS ORDERED: SERT50TA PO (22:54)
[2017-07-19] MEDS ORDERED: IBUP600T44 PO (22:54)
--- NOTE | 2017-07-19 23:04 | DIAGNOSTIC IMAGING REPORT ---
LEFT FOREARM 2 VIEWS HISTORY: Left forearm pain. Fall. COMPARISON: None. FINDINGS: There is no fracture or dislocation. Mild soft tissue swelling within the proximal to mid forearm. No elbow effusion. There is also mild soft tissue swelling within the dorsum of the wrist. No radiopaque foreign bodies. IMPRESSION: No fractures. Electronically signed by: Charles Marroquin M.D. 07/19/2017 11:03 PM Dictated Date/Time: 07/19/2017 11:01 PM
--- NOTE | 2017-07-19 23:26 | EMERGENCY ROOM VISIT NOTE ---
ED Visit Note First contact with patient: 22:41 CHIEF COMPLAINT: Left Forearm injury HISTORY OF PRESENT ILLNESS: This 32 yo patient presents to the emergency department complaining of pain in the left FA after accidently falling down a few steps and injuring her arm. The patient is able to move their wrist. The patient states the pain is throbbing and 5/10. No laceration, no weakness. No numbness or tingling. The patient denies any other injury. The patient is able to move their fingers and elbow without difficulty. The patient has not had a previous fracture to this arm. The patient has taken nothing for the pain. REVIEW OF SYSTEMS: A 6 system review of systems was performed with positives and pertinent negatives in the HPI. ALLERGIES: Bacrim MEDICATIONS: T3, reviewed PMH: Medical Problems: (1) Contusion of left foot Status: Resolved (2) Depression Status: Chronic (3) Migraine headache Status: Chronic SOCIAL HISTORY: no drug use PHYSICAL EXAM: Vital Signs: Reviewed Nurse's notes, vital signs stable. GENERAL : pleasant female, in no acute distress, but appears to be in pain, well- developed, well-neurished. NEURO: Alert and oriented to person place and time. Normal sensation to light and sharp touch. MUSCULOSKELETAL: There is no deformity of the left forearm. There is tenderness and edema over midshaft of the forearm with ecchymosis present. There is no snuff box tenderness. Range of motion is intact. There is no tenderness of the elbow, wrist, hand or fingers. [employer] strength 5/5. Radial pulse 2+. SKIN: Normal and intact. The hand is warm and well perfused with capillary refill less than 2 seconds. EMERGENCY DEPARTMENT COURSE: I examined the patient. An X-ray of the left FA wrist was reviewed by myself and radiology and showed no fx. patient was advised the bruising on her arm may take up to 2 weeks to resolve and may drain down her arm because of gravity. She is advised to elevate her arm. She is advised follow-up with orthopedics in a week if symptoms persist or here in the ER sooner for severe pain, numbness, tingling, worsening signs or symptoms or as needed The patient was discharged home in good condition. DIAGNOSIS: Left forearm contusion, Fall DISCHARGE INSTRUCTIONS & TREATMENT: as below Problem List Medical Problems: (1) Contusion of left foot Status: Resolved (2) Depression Status: Chronic (3) Migraine headache Status: Chronic Current/Historical Medications Scheduled Calcium Carbonate-Vitamin D (Calcium 500 + D), 1 TAB PO QAM Magnesium (Magnesium), 200 MG PO QAM Multivit/Min/Iron/Fol Ac/Pren ( Vitamin), 1 TAB PO QAM Sertraline (Zoloft), 50 MG PO DAILY Scheduled PRN Acetaminophen (Tylenol), 650 MG PO DIRECTED PRN for Pain or Fever Ibuprofen (Motrin), 600 MG PO Q4H PRN for Pain Allergies Coded Allergies: Sulfamethoxazole w/Trimethoprim (Verified Allergy, Severe, HIVES, 07/19/17 ) Vital Signs Date Time Temp Pulse Resp B/P (MAP) Pulse Ox O2 Delivery O2 Flow Rate FiO2 07/19/17 22:38 36.4 69 18 129/97 96 Room Air Medications Administered Medications (Trade) Dose Ordered Sig/Bri Route Start Time Stop Time Status Last Admin Dose Admin Acetaminophen (Tylenol Tab) 1,000 mg NOW STAT PO 07/19/17 22:46 07/19/17 22:47 DC 07/19/17 22:58 1,000 MG Departure Information Impression Primary Impression: Contusion of left forearm Dispostion Home / Self-Care Condition GOOD Referrals Kentrell Cook D.O. Forms WORK / SCHOOL INSTRUCTIONS, HOME CARE DOCUMENTATION FORM, IMPORTANT VISIT INFORMATION Patient Instructions [facility] Additional Instructions Oxycodone (OxyIR) 5mg: Take 1-2 pills every four hours for breakthrough pain. Avoid alcohol, operating machinery or dangerous equipment, working on ladders or roofs, DRIVING, or situations where being under the influence may be dangerous. It is recommended to use an [id number] stool softener such Acetaminophen(Tylenol) may be used for fever or pain. Use 1000mg every six hours as needed. Avoid using more than 3000mg in a 24 hour period. This medication can be taken if you need to drive, work, or perform activities which may be dangerous when taking narcotic pain medication. Ice compresses for 20 minutes at a time four times daily for 2-3 days. Rest and elevate your injury. Continue current medications. Return to the ER immediately for any numbness, tingling, severe pain, extreme swelling in the extremity or as needed. Call Orthopedics in 5-7 days if symptoms persist to arrange follow up for your injury.
[2017-07-19] MEDS ORDERED: OXYCODONE IR HOME PACK PO ONE (23:30)
== END 2017-07-19 23:27 | disposition home or self-care (01) ==
LOC: C.EDB 22:37
DX: S50.12XA Contusion of left forearm, initial encounter (principal); W10.9XXA Fall (on) (from) unspecified stairs and steps, initial encounter; F32.9 Major depressive disorder, single episode, unspecified

== ENCOUNTER 2018-02-21 17:41 | Emergency (ER) | payer BC ==
[~2018-02-21] VITALS: Ht 160 cm; Wt 60.7 kg
[~2018-02-21 17:41] MED LIST changes: +IBUP600T44 PO; -MTR600X PO; -OXYC-57 PO; +SERT50TA PO
[2018-02-21 17:52] VITALS: TEMP 37.4; Ht 160 cm; Wt 60.7 kg
--- NOTE | 2018-02-21 18:38 | EMERGENCY ROOM VISIT NOTE ---
History Report prepared by Thao: Paula Garza Under the Supervision of: Trung MenesesO. First contact with patient: 18:11 Chief Complaint: OTHER COMPLAINT Stated Complaint: RIGHT BREAST PAIN History of Present Illness The patient is a 32 year old female who presents to the Emergency Room with complaints of excruciating right breast pain beginning last night. She reports that her baby slept through the night and missed her usual breast feeding which caused the patient to get "backed up." This morning, she tried to nurse and express but she developed a fever of 102.4. The patient has some nausea but denies any abnormal discharge. She has 3 other kids and notes this has happened to her at least 10 times in the past. She took ibuprofen at 1630 today. No abnormal discharge or bleeding, no cough or URI symptoms, no n/v/d, no urinary symptoms, no other rash/sores/bites. No abdominal pain or chest pain. Denies headache. Source of History: patient Onset: last night Position: other (right breast) Symptom Intensity: excruciating Quality: other ("backed up" due to a missed feeding) Associated Symptoms: + fevers (102.4), + nausea Note: Negative abnormal discharge Review of Systems See HPI for pertinent positives & negatives. A total of 10 systems reviewed and were otherwise negative. Past Medical & Surgical Medical Problems: (1) Acute mastitis of right breast (2) Contusion of left foot (3) Depression (4) Migraine headache Family History FH: heart disease Hypertension Social History Smoking Status: Never Smoker Alcohol Use: none Marital Status: Housing Status: lives with family Current/Historical Medications Scheduled Calcium Carbonate-Vitamin D (Calcium 500 + D), 1 TAB PO QAM Cefdinir (Omnicef), 300 MG PO Q12H Magnesium (Magnesium), 200 MG PO QAM Multivit/Min/Iron/Fol Ac/Pren ( Vitamin), 1 TAB PO QAM Sertraline (Zoloft), 50 MG PO DAILY Scheduled PRN Acetaminophen (Tylenol), 650 MG PO DIRECTED PRN for Pain or Fever Ibuprofen (Motrin), 600 MG PO Q4H PRN for Pain Allergies Coded Allergies: Sulfamethoxazole w/Trimethoprim (Verified Allergy, Severe, HIVES, 07/19/17 ) Physical Exam Vital Signs Date Time Temp Pulse Resp B/P (MAP) Pulse Ox O2 Delivery O2 Flow Rate FiO2 02/21/18 19:10 85 18 121/69 97 02/21/18 17:52 37.4 91 21 125/75 97 Room Air Physical Exam GENERAL: alert, well appearing, well nourished, no distress, non-toxic EYE EXAM: normal conjunctiva, PERRL and EOM's grossly intact OROPHARYNX: no exudate, no erythema, lips, buccal mucosa, and tongue normal and mucous membranes are moist NECK: supple, no nuchal rigidity, no adenopathy, non-tender LUNGS: Clear to auscultation. Normal chest wall mechanics BREAST: Right breast with area of increased erythema between the 0900 and 1100 position. No discharge. No extension into the axilla. No palpable mass. Left breast normal. Patient engorged consist with breast feeding. HEART: no murmurs, S1 normal and S2 normal ABDOMEN: abdomen soft, non-tender, normo-active bowel sounds, no masses, no rebound or guarding. BACK: Back is symmetrical on inspection and there is no deformity, no midline tenderness, no CVA tenderness. SKIN: no rashes and no bruising UPPER EXTREMITIES: upper extremities are grossly normal. LOWER EXTREMITIES: No pitting edema. NEURO EXAM: Normal sensorium, cranial nerves II-XII grossly intact, normal speech, no gross weakness of arms, no gross weakness of legs. Medical Decision & Procedures Medications Administered Medications (Trade) Dose Ordered Sig/Bri Route Start Time Stop Time Status Last Admin Dose Admin Ondansetron HCl (ZOFRAN ODT 4MG Home Pack) 1 homepack UD ONCE PO 02/21/18 18:45 02/21/18 18:46 DC 02/21/18 19:08 1 HOMEPACK Ondansetron HCl (Zofran Odt) 4 mg ONE ONCE PO 02/21/18 18:45 02/21/18 18:46 DC 02/21/18 19:07 4 MG Cephalexin Monohydrate (Keflex 500MG Home Pack) 1 homepack NOW ONCE PO 02/21/18 18:45 02/21/18 18:46 DC 02/21/18 19:07 1 HOMEPACK Cephalexin Monohydrate (Keflex Cap) 500 mg NOW ONCE PO 02/21/18 18:45 02/21/18 18:46 DC 02/21/18 19:07 500 MG Acetaminophen/ Hydrocodone Bitart ([place] 5/325 Tab) 1 tab NOW STAT PO 02/21/18 18:52 02/21/18 18:53 DC 02/21/18 19:07 1 TAB Acetaminophen/ Hydrocodone Bitart ([place] 5/325mg Home Pack) 1 homepack UD ONCE PO 02/21/18 19:00 02/21/18 19:01 DC 02/21/18 19:08 1 HOMEPACK ED Course 182: The patient was evaluated in room C6. A complete history and physical exam was performed. 1844: Ordered Keflex Cap 500 mg PO, Zofran Odt 4 mg PO 1909: Upon reevaluation, the patient is feeling better. I discussed the findings and the treatment plan with the patient. She verbalizes agreement and understanding. She was discharged home. Medical Decision Differential diagnosis: Etiologies such as viral syndrome, otitis, pharyngitis, pneumonia, influenza, meningitis, urinary tract infection, sepsis, bacteremia, as well as others were entertained. Pt here well appearing. Pt with prior hx of mastitis while prior children. Exam consistent with mastitic. Pt denies any other recent symptoms to suggest alternative source of infection. VS stable. I do not suspect bacteremia/sepsis. Pt well appearing at DC, verbalized understanding of results and plan. Discussed sx to watch/return for, pt in agreement. Medication Reconcilliation Current Medication List: was personally reviewed by me Blood Pressure Screening Patient's blood pressure: Normal blood pressure Blood pressure disposition: Did not require urgent referral Impression Primary Impression: Mastitis Scribe Attestation The scribe's documentation has been prepared under my direction and personally reviewed by me in its entirety. I confirm that the note above accurately reflects all work, treatment, procedures, and medical decision making performed by me. Departure Information Dispostion Home / Self-Care Referrals Justus Pérez M.D. (PCP) Forms HOME CARE DOCUMENTATION FORM, IMPORTANT VISIT INFORMATION, WORK / SCHOOL INSTRUCTIONS Patient Instructions [facility] Additional Instructions Please call follow-up with your INTERNAL CONTROLS SPECIALIST. Please continue the antibiotics as prescribed. You may use Zofran as needed. Please continue using Tylenol and ibuprofen for pain and/or fevers. Please continue to breast-feed. Please drink plenty water to stay well-hydrated. Please be cautious when using the stronger pain medication. You may take it and continue to breast-feed. If you are using it frequently throughout the day, please monitor the child for any creased sleepiness or decreased level of alertness. If you have any increased redness or pain, persistent fevers, vomiting, or you have any other new or concerning symptoms, please return the emergency room. If the area of redness spreads outside the outlined area, please return to the emergency room.
[2018-02-21] MEDS ORDERED: CEPHALEXIN 500MG HOME PACK 1 EA BTL PO ONE (18:45)
[2018-02-21] MEDS ORDERED: ONDANSETRON HOME PACK 4MG OD TAB PO ONE (18:45)
[2018-02-21] MEDS ORDERED: ONDANSETRON 4MG OD TAB PO ONE (18:45)
[2018-02-21] MEDS ORDERED: CEPHALEXIN MONOHYDRATE 250 MG CAP PO ONE (18:45)
[2018-02-21] MEDS ORDERED: HYDROCODONE/ACETAMIN 5/325MG TAB PO STA (18:52)
[2018-02-21] MEDS ORDERED: CEPH500C PO (18:52)
[2018-02-21] MEDS ORDERED: NORCO 5/325MG HOME PACK PO ONE (19:00)
[2018-02-21 19:10] VITALS: BP 121/69; PULSE 85; O2SAT 97
== END 2018-02-21 19:10 | disposition home or self-care (01) ==
LOC: C.EDB 17:42 → C.EDC 19:10
DX: N61.0 Mastitis without abscess (principal); F32.9 Major depressive disorder, single episode, unspecified; Z82.49 Family history of ischemic heart disease and other diseases of the circulatory system; Z79.899 Other long term (current) drug therapy; Z88.2 Allergy status to sulfonamides

== ENCOUNTER 2018-02-22 14:29 | Inpatient (IN) | payer BC ==
[~2018-02-22 14:29] MED LIST changes: +CEPH500C PO
[2018-02-22 15:40] VITALS: BP 117/77; PULSE 76; TEMP 37.4; O2SAT 100
[2018-02-22 15:41] VITALS: BP 117/77; PULSE 76; TEMP 37.4; O2SAT 100
[2018-02-22] MEDS ORDERED: KETOROLAC TROMETHAMINE 15 MG/ML VIAL IV STA (16:00)
[2018-02-22] MEDS ORDERED: HYDROCODONE/ACETAMI 10/325 TAB PO STA (16:36)
[2018-02-22] MEDS ORDERED: ONDANSETRON INJ 2 MG/ML 2 ML VIAL IV PRN (16:45)
[2018-02-22] MEDS ORDERED: POLYETHYLENE (MIRALAX) 17 GM PACK PO PRN (16:45)
[2018-02-22] MEDS ORDERED: ALUMINUM/MAGNESIUM/SIMETH (MAALOX MAX) 30 ML UDC PO PRN (16:45)
[2018-02-22] MEDS ORDERED: MAGNESIUM HYDROXIDE SUSP 30 ML UDC PO PRN (16:45)
[2018-02-22] MEDS ORDERED: ACETAMINOPHEN 325 MG TAB PO PRN (16:45)
--- NOTE | 2018-02-22 16:59 | History and Physical ---
History & Physical Date & Time of Service: Feb 22, 2018 at 16:59 Chief Complaint: Mastitis Primary Care Physician: Justus Pérez M.D. History of Present Illness Source: patient Ms. Tay is a 32 y/o female with PMHx of Migraine Headaches and Depression who is a direct admission for R Lactational Breast Mastitis x 2 days. Patient is currently . Baby is 10 months old and supplements with solid foods as well. She states her erythema started on 02/20 and limited to the R breast. She states her baby slept through the night prior to this a missed her normal feedings. Yesterday she reports a fever of 102.4 and presented to the ED. She was placed on Keflex and [place] for pain management. Patient started her medication but has been on Abx for less than 24 hours at this point. She is still trying to breast feed with this breast but is not sure if the baby is getting much. She presented to her PCP today with increased pain and erythema. She has had multiple bouts of mastitis in the past but states this is the worst episode. She has never required I&D for breast abscess. She is also experiencing a all over migraine with pain into her teeth and photophobia. She took a [place] this AM but hasn't had anything since. Past Medical/Surgical History 1. Lactational Mastitis - R Breast 2. Migraine Headaches 3. S/P x 4 4. Depression Family History FH: heart disease Hypertension Social History Smoking Status: Never Smoker Marital Status: Allergies Coded Allergies: Sulfamethoxazole w/Trimethoprim (Verified Allergy, Severe, HIVES, 07/19/17 ) Home Medications Scheduled Calcium Carbonate-Vitamin D (Calcium 500 + D), 1 TAB PO QAM Cephalexin Monohydrate (Keflex), 500 MG PO QID Magnesium (Magnesium), 200 MG PO QAM Multivit/Min/Iron/Fol Ac/Pren ( Vitamin), 1 TAB PO QAM Sertraline (Zoloft), 50 MG PO DAILY Scheduled PRN Acetaminophen (Tylenol), 650 MG PO DIRECTED PRN for Pain or Fever Ibuprofen (Motrin), 600 MG PO Q4H PRN for Pain Review of Systems Constitutional: + fever, + chills, + problem reported (all over headache with pain into her teeth) Eyes: + problem reported (photophobia), No worsening of vision ENT: No nasal symptoms, No sore throat Respiratory: No cough, No shortness of breath Cardiovascular: No chest pain Abdomen: + nausea, No pain, No vomiting, No diarrhea, No constipation Musculoskeletal: No swelling, No calf pain Genitourinary - Female: No dysuria Hematologic / Lymphatic: No abnormal bleeding/bruising Integumentary: + problem reported (increasing erythema and edema of R breast) Physical Exam Vital Signs Date Time Temp Pulse Resp B/P (MAP) Pulse Ox O2 Delivery O2 Flow Rate FiO2 02/22/18 15:41 37.4 76 18 117/77 (90) 100 Room Air 02/22/18 15:40 37.4 76 18 117/77 100 Room Air General Appearance: WD/WN, + mild distress (pain), + pertinent finding ( shivering) Head: normocephalic, atraumatic Eyes: sclerae normal ENT: hearing grossly normal Neck: supple, no JVD, trachea midline Respiratory/Chest: lungs clear, normal breath sounds, no respiratory distress, no accessory muscle use, + pertinent finding (breast with erythema from approx 9 -12 oclock of the breast, does not extend into the tail; breast is extremely tender to touch and engorged) Cardiovascular: regular rate, rhythm, no gallop, no murmur Abdomen/GI: normal bowel sounds, non tender, soft Extremities/Musculoskelatal: no calf tenderness, no pedal edema Neurologic/Psych: alert, oriented x 3 Skin: normal color, warm/dry Diagnostics Laboratory Results Results Past 24 Hours Test 02/22/18 16:43 Range/Units Impression Assessment and Plan Ms. Tay is a 32 y/o female with PMHx of Migraine Headaches and Depression who is a direct admission for R Lactational Breast Mastitis x 2 days. Patient is currently . Lactational Mastitis of R Breast: - Breast is significantly engorged and severely painful to light touch - cannot appreciate an area of fluctulance at this time but a thorough breast exam is difficult in the setting of pain. - Toradol 15 mg IV x 1 dose now and [place] 10 mg x 1 dose -- Both are alright to use with but limited research with Toradol and recommend pumping and dumping for at least 4 hours after administration - Discussed with OB staff and consultatant - appreciate recommendations - planning on implementing breast pump to drain breast - pump was provided and hopefully with better pain control this can be instituted - Patient may safely continue to breastfeed which is encouraged or pump/dump - At this time would not consider Abx failure as Keflex was just initiated yesterday - Rocephin 1 g IV daily will be instituted at this time which again is safe with - if no improvement may need to cover MRSA. Patient does report x 11 years ago she was bit by a spider and at that time was concerned for MRSA - Once better pain control a better examination can be made and consideration for U/S if abscess is of concern - Stadol 1 mg IV Q3H - Maintain a bowel regimen Migraine MAC: - States this doesn't feel like her normal headaches but came on because of her breast pain - Main medication as above and anti-nausea control - will monitor Depression: - Zoloft 50 mg daily DVT Prophylaxis: SCDs Code Status: FULL Disposition: Pain management and Abx Advanced Directives Existing Living Will: No Existing Power of Transport Truck Driver: No Resuscitation Status VTE Prophylaxis Will order VTE Prophylaxis: Yes Reviewed: Pt Seen/Exam by Me History Pt is having extreme R breast pain. She has a migraine now as well. She has been tolerating PO without issue [employer]. Denies chest pain, SOB. Agree with HPI/ROS as noted by PA General Appearance: WD/WN, no apparent distress Eye Exam: bilateral eye normal inspection, bilateral eye other (sclera nml) Respiratory: normal breath sounds, no respiratory distress Cardiovascular: normal peripheral pulses, regular rate, rhythm Gastrointestinal: non tender, soft Extremities: non-tender, no pedal edema Neurologic/Psychiatric: alert, oriented x 3 Skin Characteristics: warm/dry, other (Redness noted on chest, R breast) Assessment/Plan Agree with plan as outlined above. R mastitis, started on keflex yesterday from ED however no improvement Toradol, stadol, rocephin
[2018-02-22] MEDS ORDERED: CEFTRIAXONE SOD INJ 1 GM in DEXTROSE 5% ADD-VANTAGE 50ML 50 ML IV SCH (17:00)
[2018-02-22 17:15] LABS: HEMATOCRIT 40.6 % (37-47); HEMOGLOBIN 13.6 g/dL (12.0-16.0); MEAN CELL VOLUME 91.6 fL (80-100); MEAN CORPUSCULAR HEMOGLOBIN 30.7 pg (25-34); MEAN CORPUSCULAR HGB CONC 33.5 g/dl (32-36); MEAN PLATELET VOLUME 10.8 fL (7.4-10.4); PLATELET COUNT 140 K/uL (130-400); RED CELL DISTRIBUTION WIDTH CV 12.4 % (11.5-14.5); RED CELL DISTRIBUTION WIDTH SD 41.8 fL (36.4-46.3); WHITE BLOOD COUNT 17.56 K/uL (4.8-10.8)
[2018-02-22 17:31] LABS: BASO % 0.1 %; BASO ABS # 0.01 K/uL (0-0.2); EOS % 0.6 %; IG# 0.04 K/uL (0.00-0.02); LYMPH % 5.5 %; LYMPH ABS # 0.96 K/uL (1.2-3.4); MONO % 9.2 %; MONO ABS # 1.62 K/uL (0.11-0.59); NEUT % 84.4 %; NEUT ABS # 14.83 K/uL (1.4-6.5)
[2018-02-22 17:35] LABS: ALBUMIN 3.5 gm/dl (3.4-5.0); ALKALINE PHOSPHATASE 72 U/L (45-117); ALT/SGPT 29 U/L (12-78); AST/SGOT 20 U/L (15-37); BLOOD UREA NITROGEN 17 mg/dl (7-18); CALCIUM 8.7 mg/dl (8.5-10.1); CARBON DIOXIDE 25 mmol/L (21-32); GLUCOSE 97 mg/dl (70-99); POTASSIUM 3.9 mmol/L (3.5-5.1); SODIUM 136 mmol/L (136-145)
[2018-02-22] MEDS: CEFTRIAXONE SOD INJ 1 GM in DEXTROSE 5% ADD-VANTAGE 50ML 50 ML IV SCH (17:44)
[2018-02-22] MEDS: BUTORPHANOL TARTRATE 1 MG/ML VIAL IV PRN ×2 (17:46→21:10)
[2018-02-22] MEDS: DOCUSATE SODIUM 100 MG CAP PO SCH (20:00)
[2018-02-22 22:36] VITALS: BP 84/51; PULSE 91; TEMP 36.8; O2SAT 97
[2018-02-23] MEDS: BUTORPHANOL TARTRATE 1 MG/ML VIAL IV PRN ×2 (02:18→05:53)
--- NOTE | 2018-02-23 07:52 | Family Medicine Progress Note ---
Progress Note Date of Service Feb 23, 2018. Subjective Pain: 5/10 resolved s/p meds PO Intake: tolerating Voiding: no voiding problems Ms. Tay is a 32 y/o female with PMHx of Migraine Headaches and Depression who is a direct admission for R Lactational Breast Mastitis x 2 days. Patient is currently . Baby is 10 months old and supplements with solid foods as well. She states her erythema started on 02/20 and limited to the R breast. She states her baby slept through the night prior to this a missed her normal feedings. Yesterday she reports a fever of 102.4 and presented to the ED. She was placed on Keflex and [place] for pain management. Patient started her medication but has been on Abx for less than 24 hours at this point. She is still trying to breast feed with this breast but is not sure if the baby is getting much. She presented to her PCP today with increased pain and erythema. She has had multiple bouts of mastitis in the past but states this is the worst episode. She has never required I&D for breast abscess. She is also experiencing a all over migraine with pain into her teeth and photophobia. She took a [place] this AM but hasn't had anything since. Patient was in significant pain when I examined her this morning, tolerating diet, voiding and stooling appropriately. slept well overnight Breast: + breast pain (2/2 mastitis) All Other Systems: Reviewed and Negative Medications Current Inpatient Medications Medications (Trade) Dose Ordered Sig/Bri Route Start Time Stop Time Status Last Admin Dose Admin Acetaminophen (Tylenol Tab) 650 mg Q4H PRN PO 02/22/18 16:45 03/24/18 16:44 Al Hydrox/Mg Hydrox/Simethicone (Maalox Max Susp) 15 ml Q4H PRN PO 02/22/18 16:45 03/24/18 16:44 Magnesium Hydroxide (Milk Of Magnesia Susp) 30 ml Q6H PRN PO 02/22/18 16:45 03/24/18 16:44 Polyethylene (Miralax Powder Packet) 17 gm DAILY PRN PO 02/22/18 16:45 03/24/18 16:44 Ondansetron HCl (Zofran Inj) 4 mg Q6H PRN IV 02/22/18 16:45 03/24/18 16:44 02/22/18 17:20 4 MG Prenat Multivit/ Head Sugar Reprocess Operator/Iron/Folic Ac ( Vitamin Tab) 1 tab QAM PO 02/23/18 08:00 03/25/18 07:59 Sertraline HCl (Zoloft Tab) 50 mg DAILY PO 02/23/18 08:00 03/25/18 07:59 Ceftriaxone Sodium 1 gm/ Dextrose 50 ml @ 100 mls/hr Q24H IV 02/22/18 17:00 03/04/18 16:59 02/22/18 17:44 100 MLS/HR Butorphanol Tartrate (Stadol Inj) 1 mg Q3H PRN IV 02/22/18 17:00 03/24/18 16:59 02/23/18 05:53 1 MG Docusate Sodium (coLACE CAP) 100 mg BID PO 02/22/18 20:00 03/24/18 19:59 Objective Vital Signs Date Time Temp Pulse Resp B/P (MAP) Pulse Ox O2 Delivery O2 Flow Rate FiO2 02/23/18 00:00 Room Air 02/22/18 22:36 36.8 91 16 84/51 (62) 97 Room Air 02/22/18 19:00 Room Air 02/22/18 15:41 37.4 76 18 117/77 (90) 100 Room Air 02/22/18 15:40 37.4 76 18 117/77 100 Room Air Physical Exam General Appearance: WD/WN, no apparent distress Eyes: normal inspection, sclerae normal Neck: supple, no adenopathy, thyroid normal, no JVD, no carotid bruits, trachea midline Respiratory/Chest: chest non-tender, lungs clear, normal breath sounds, no respiratory distress, no accessory muscle use Cardiovascular: regular rate, rhythm, no edema, no gallop, no JVD, no murmur Abdomen: normal bowel sounds, non tender, soft, no organomegaly Extremities: non-tender, normal inspection, no pedal edema, no calf tenderness , normal capillary refill Neurologic/Psychiatric: no motor/sensory deficits, normal mood/affect, oriented x 3 Skin: normal color, warm/dry, + rash (right breast) Lymphatic: no adenopathy Laboratory Results Last Resulted 02/22/18 17:05 Red Blood Count 4.43, Mean Corpuscular Volume 91.6, Mean Corpuscular Hemoglobin 30.7, Mean Corpuscular Hemoglobin Concent 33.5, Mean Platelet Volume 10.8, Neutrophils (%) (Auto) 84.4, Lymphocytes (%) (Auto) 5.5, Monocytes (%) (Auto) 9.2, Eosinophils (%) (Auto) 0.6, Basophils (%) (Auto) 0.1, Neutrophils # (Auto) 14.83, Lymphocytes # (Auto) 0.96, Monocytes # (Auto) 1.62, Eosinophils # (Auto) 0.10, Basophils # (Auto) 0.01 Last Resulted 02/22/18 17:05 Assessment and Plan Ms. Tay is a 32 y/o female with PMHx of Migraine Headaches and Depression who is a direct admission for R Lactational Breast Mastitis x 2 days. Patient is currently . Lactational Mastitis of R Breast: Following protocols per journal of medicine - Breast is significantly engorged and severely painful to light touch -appreciate an area of fluctuance at this time but a thorough breast exam is difficult in the setting of pain. -obtained u/s negative for abscess - In Ed Toradol 15 mg IV x 1 dose now and [place] 10 mg x 1 dose - Both are alright to use with but limited research with Toradol and recommend pumping and dumping for at least 4 hours after administration - Discussed with OB staff and security sales consultant - appreciate recommendations - planning on implementing breast pump to drain breast - pump was provided and she is using - Patient may safely continue to breastfeed which is encouraged or pump/dump - At this time would not consider Abx failure as Keflex was just initiated yesterday transitioned to Rocephin as inpatient 1 g IV daily will be instituted at this time which again is safe with - if no improvement may need to cover MRSA. Patient does report x 11 years ago she was bit by a spider and at that time was concerned for MRSA -cx breast milk for MRSA - no organisms on gram stain NGTD - [place] 5/325 1 tab for pain<5 2 tabs for pain >5 - safe breast feeding recommended protocolos journal breast feeding medicine - Maintain a bowel regimen Migraine MAC: - States this doesn't feel like her normal headaches but came on because of her breast pain - Main medication as above and anti-nausea control - will monitor - 1 dose sumatriptan this am for migraine patient reported pain resolved- advised to pump and dump for 12 hours Depression: - Zoloft 50 mg daily DVT Prophylaxis: SCDs Code Status: FULL Disposition: Pain management and Abx, hopefully dc home tomorrow Resident Physician Supervision Note: I interviewed and examined the patient. Discussed with Dr. Avalos and agree with findings and plan as documented in the note. Any exceptions or clarifications are listed here: None Documented By: Gustavo Luis feeling better than before but still hurting a good deal. headache better vitals noted nad breathing unlabored no pallor or icterus mastitis w SIRS (and therefore sepsis) on admission - improving. continue current care, ?home tomorrow migraine - improved - ongoing guidance on safety of meds and when to "pump and dump" Continued [facility] stay due to: multiple IV medications needed Discharge planning: home Resident Tracking Resident Involvement: Resident Care Provided Care Provided: Adult Hospital Medicine
[2018-02-23 08:00] VITALS: O2SAT 100
[2018-02-23] MEDS: DOCUSATE SODIUM 100 MG CAP PO SCH ×2 (08:00→20:10)
[2018-02-23 08:04] VITALS: BP 97/62; PULSE 81; TEMP 37.9; O2SAT 96
[2018-02-23] MEDS: SERTRALINE HCL 50 MG TAB PO SCH (08:28)
[2018-02-23] MEDS: PRENATAL VITAMIN TAB PO SCH (08:28)
[2018-02-23] MEDS ORDERED: ACETAMINOPHEN 325 MG TAB PO SCH (09:00)
[2018-02-23] MEDS ORDERED: SUMATRIPTAN SUCCINATE 50 MG TAB PO PRN (10:45)
[2018-02-23] MEDS: HYDROCODONE/ACETAMIN 5/325MG TAB PO PRN ×3 (11:11→21:09)
--- NOTE | 2018-02-23 11:39 | DIAGNOSTIC IMAGING REPORT ---
R BREAST COMPLETE UNILATERAL CLINICAL HISTORY: Mastitis. Evaluate for abscess. COMPARISON STUDY: No previous studies for comparison. FINDINGS: Ultrasonographic evaluation the right breast was performed and retail wireless sales representative images are submitted for interpretation. There is a large area of heterogeneous echotexture within the right breast laterally measuring approximately 12.9 x 3.6 x 11.6 cm. This likely represents edema. No focal masses evident. There are no fluid collections to indicate an abscess. If clinical findings persist, referral to the diagnostic breast Center is recommended. IMPRESSION: 1. No ultrasonographic evidence of abscess 2. If clinical findings persist, referral to the diagnostic breast Center is recommended. Electronically signed by: Woody Martinez M.D. 02/23/2018 11:37 AM Dictated Date/Time: 02/23/2018 11:35 AM
[2018-02-23 13:30] VITALS: TEMP 36.9
[2018-02-23 14:56] VITALS: BP 117/69; PULSE 79; TEMP 37.3; O2SAT 97
[2018-02-23] MEDS: CEFTRIAXONE SOD INJ 1 GM in DEXTROSE 5% ADD-VANTAGE 50ML 50 ML IV SCH (16:58)
[2018-02-23] MEDS: IBUPROFEN 600 MG TAB PO PRN (20:12)
[2018-02-23 22:52] VITALS: BP 111/71; PULSE 51; TEMP 37; O2SAT 98
[2018-02-24] MEDS: SERTRALINE HCL 50 MG TAB PO SCH (07:14)
[2018-02-24] MEDS: PRENATAL VITAMIN TAB PO SCH (07:15)
[2018-02-24] MEDS: DOCUSATE SODIUM 100 MG CAP PO SCH (07:16)
[2018-02-24 07:26] VITALS: BP 87/53; PULSE 50; TEMP 36.8; O2SAT 99
--- NOTE | 2018-02-24 07:57 | Family Medicine Progress Note ---
Progress Note Date of Service Feb 24, 2018. Subjective Subjective: CC: Mastitis/ Pain HPI: Ms. Tay is a 32 y/o female with PMHx of Migraine Headaches and Depression who is a direct admission for R Lactational Breast Mastitis x 2 days. Patient is currently . Baby is 10 months old and supplements with solid foods as well. She states her erythema started on 02/20 and limited to the R breast. She states her baby slept through the night prior to this a missed her normal feedings. Yesterday she reports a fever of 102.4 and presented to the ED. She was placed on Keflex and [place] for pain management. Patient started her medication but has been on Abx for less than 24 hours at this point. She is still trying to breast feed with this breast but is not sure if the baby is getting much. She presented to her PCP today with increased pain and erythema. She has had multiple bouts of mastitis in the past but states this is the worst episode. She has never required I&D for breast abscess. She is also experiencing a all over migraine with pain into her teeth and photophobia. She took a [place] this AM but hasn't had anything since. Medications Current Inpatient Medications Medications (Trade) Dose Ordered Sig/Bri Route Start Time Stop Time Status Last Admin Dose Admin Al Hydrox/Mg Hydrox/Simethicone (Maalox Max Susp) 15 ml Q4H PRN PO 02/22/18 16:45 03/24/18 16:44 Magnesium Hydroxide (Milk Of Magnesia Susp) 30 ml Q6H PRN PO 02/22/18 16:45 03/24/18 16:44 Polyethylene (Miralax Powder Packet) 17 gm DAILY PRN PO 02/22/18 16:45 03/24/18 16:44 Ondansetron HCl (Zofran Inj) 4 mg Q6H PRN IV 02/22/18 16:45 03/24/18 16:44 02/22/18 17:20 4 MG Prenat Multivit/ [place]/Iron/Folic Ac ( Vitamin Tab) 1 tab QAM PO 02/23/18 08:00 03/25/18 07:59 02/24/18 07:15 1 TAB Sertraline HCl (Zoloft Tab) 50 mg DAILY PO 02/23/18 08:00 03/25/18 07:59 02/24/18 07:14 50 MG Ceftriaxone Sodium 1 gm/ Dextrose 50 ml @ 100 mls/hr Q24H IV 02/22/18 17:00 03/04/18 16:59 02/23/18 16:58 100 MLS/HR Butorphanol Tartrate (Stadol Inj) 1 mg Q3H PRN IV 02/22/18 17:00 03/24/18 16:59 02/23/18 05:53 1 MG Docusate Sodium (coLACE CAP) 100 mg BID PO 02/22/18 20:00 03/24/18 19:59 02/23/18 20:10 100 MG Acetaminophen/ Hydrocodone Bitart ([place] 5/325 Tab) prn pain q4h 1 tab for p... Q4H PRN PO 02/23/18 10:45 03/09/18 10:44 02/23/18 21:09 2 TAB Sumatriptan Succinate (Imitrex Tab) 50 mg UD PRN PO 02/23/18 10:45 03/25/18 10:44 Ibuprofen (Motrin Tab) 600 mg QID PRN PO 02/23/18 20:00 03/25/18 19:59 02/23/18 20:12 600 MG Objective Vital Signs Date Time Temp Pulse Resp B/P (MAP) Pulse Ox O2 Delivery O2 Flow Rate FiO2 02/24/18 07:26 36.8 50 16 87/53 (64) 99 02/23/18 23:59 Room Air 02/23/18 22:52 37.0 51 16 111/71 (84) 98 Room Air 02/23/18 14:56 37.3 79 16 117/69 (85) 97 02/23/18 13:30 36.9 02/23/18 08:04 37.9 81 16 97/62 (74) 96 02/23/18 08:00 100 Room Air Laboratory Results Last Resulted 02/22/18 17:05 Red Blood Count 4.43, Mean Corpuscular Volume 91.6, Mean Corpuscular Hemoglobin 30.7, Mean Corpuscular Hemoglobin Concent 33.5, Mean Platelet Volume 10.8, Neutrophils (%) (Auto) 84.4, Lymphocytes (%) (Auto) 5.5, Monocytes (%) (Auto) 9.2, Eosinophils (%) (Auto) 0.6, Basophils (%) (Auto) 0.1, Neutrophils # (Auto) 14.83, Lymphocytes # (Auto) 0.96, Monocytes # (Auto) 1.62, Eosinophils # (Auto) 0.10, Basophils # (Auto) 0.01 Last Resulted 02/22/18 17:05 Date/Time Source Procedure Growth Status 02/23/18 11:55 Drainage-Deep Breast, Right Gram Stain - Final Resulted 02/23/18 11:55 Drainage-Deep Breast, Right Wound Culture Pending Resulted Assessment and Plan Ms. Tay is a 32 y/o female with PMHx of Migraine Headaches and Depression who is a direct admission for R Lactational Breast Mastitis x 2 days. Patient is currently . Lactational Mastitis of R Breast: Following protocols per journal of medicine - Breast is significantly engorged and severely painful to light touch -appreciate an area of fluctuance at this time but a thorough breast exam is difficult in the setting of pain. -obtained u/s negative for abscess - In Ed Toradol 15 mg IV x 1 dose now and [place] 10 mg x 1 dose - Both are alright to use with but limited research with Toradol and recommend pumping and dumping for at least 4 hours after administration - Discussed with OB staff and etl consultant - appreciate recommendations - planning on implementing breast pump to drain breast - pump was provided and she is using - Patient may safely continue to breastfeed which is encouraged or pump/dump - At this time would not consider Abx failure as Keflex was just initiated yesterday transitioned to Rocephin as inpatient 1 g IV daily will be instituted at this time which again is safe with - if no improvement may need to cover MRSA. Patient does report x 11 years ago she was bit by a spider and at that time was concerned for MRSA -cx breast milk for MRSA - no organisms on gram stain NGTD - [place] 5/325 1 tab for pain<5 2 tabs for pain >5 - safe breast feeding recommended protocolos journal breast feeding medicine - Maintain a bowel regimen Migraine MAC: - States this doesn't feel like her normal headaches but came on because of her breast pain - Main medication as above and anti-nausea control - will monitor - 1 dose sumatriptan this am for migraine patient reported pain resolved- advised to pump and dump for 12 hours Depression: - Zoloft 50 mg daily DVT Prophylaxis: SCDs Code Status: FULL Disposition: Pain management and Abx, hopefully dc home tomorrow Resident Tracking Resident Involvement: Resident Care Provided Care Provided: Adult Hospital Medicine
[2018-02-24 08:00] VITALS: O2SAT 99
[2018-02-24] MEDS: HYDROCODONE/ACETAMIN 5/325MG TAB PO PRN (08:02)
[2018-02-24 08:32] LABS: HEMATOCRIT 38.9 % (37-47); HEMOGLOBIN 12.7 g/dL (12.0-16.0); MEAN CELL VOLUME 92.6 fL (80-100); MEAN CORPUSCULAR HEMOGLOBIN 30.2 pg (25-34); MEAN CORPUSCULAR HGB CONC 32.6 g/dl (32-36); MEAN PLATELET VOLUME 11.1 fL (7.4-10.4); PLATELET COUNT 162 K/uL (130-400); RED CELL DISTRIBUTION WIDTH CV 12.4 % (11.5-14.5); RED CELL DISTRIBUTION WIDTH SD 42.3 fL (36.4-46.3); WHITE BLOOD COUNT 9.24 K/uL (4.8-10.8)
[2018-02-24 08:56] LABS: BLOOD UREA NITROGEN 15 mg/dl (7-18); CALCIUM 9.2 mg/dl (8.5-10.1); CARBON DIOXIDE 29 mmol/L (21-32); CREATININE 0.72 mg/dl (0.60-1.20); GLUCOSE 98 mg/dl (70-99); SODIUM 140 mmol/L (136-145)
[2018-02-24] MEDS: IBUPROFEN 600 MG TAB PO PRN (10:50)
[2018-02-24 11:07] VITALS: BP 87/53; PULSE 50; TEMP 36.8; O2SAT 99
[2018-02-24] MEDS ORDERED: CEFD1CAP14 PO (13:56)
--- NOTE | 2018-02-24 14:13 | Discharge Instructions ---
Discharge Instructions Date of Service Feb 24, 2018. Admission Reason for Admission: Mastitis Discharge Discharge Diagnosis / Problem: mastitis Discharge Goals Goal(s): Diagnostic testing, Therapeutic intervention Activity Recommendations Activity Limitations: resume your previous activity . Instructions / Follow-Up Instructions / Follow-Up mastitis -failing keflex, we escalated antibiotics to rocephin (a more potent antibiotic in the same family) -the rocephin appears to have made a significant improvement to where we can get you home -there is not a complete oral equivalent to rocephin, but cefdinir is a very close cousin antibiotic in the same class -- take 300mg twice a day for the next 12 days (14 days total) -- as you're following up in the office, if the infection is getting better faster, it's possible that they can stop the antibiotics sooner, but for now we'll prescribe with the assumption that it could take a full 14 days. as with most antibiotics, cefdinir is "presumed safe " with breast feeding. the added measure of safety is that even if it gets in the breast milk, it's an antibiotic that is safe to use in children as young as 2 months old -use tylenol or ibuprofen for pain Current Hospital Diet Patient's current hospital diet: Regular Diet Discharge Diet Recommended Diet: Regular Diet Pending Studies Studies pending at discharge: no Medical Emergencies . Who to Call and When: Medical Emergencies: If at any time you feel your situation is an emergency, please call 911 immediately. . Non-Emergent Contact Non-Emergency issues call your: Primary Care Provider . . "Provider Documentation" section prepared by Gustavo Smith. .
--- NOTE | 2018-02-24 18:47 | Discharge Summary ---
Discharge Summary Date of Service Feb 24, 2018. Discharge Summary Admission Date: Feb 22, 2018 at 14:29 Discharge Date: Feb 24, 2018 Principal Diagnosis: Mastitis Procedures: Breast Milk CX: Coag Neg Staph Breast U/S: 1. No ultrasonographic evidence of abscess 2. If clinical findings persist, referral to the diagnostic breast Center is recommended. Medication Reconciliation New Medications: Cefdinir (Omnicef) 300 Mg Cap 300 MG PO Q12H, #24 CAP Continued Medications: Acetaminophen (Tylenol) 325 Mg Tab 650 MG PO DIRECTED PRN for Pain or Fever, TAB Calcium Carbonate-Vitamin D (Calcium 500 + D) 1 Tab Tab 1 TAB PO QAM Ibuprofen (Motrin) 600 Mg Tab 600 MG PO Q4H PRN for Pain, TAB Magnesium (Magnesium) 200 Mg Tab 200 MG PO QAM Multivit/Min/Iron/Fol Ac/Pren ( Vitamin) Tab 1 TAB PO QAM, TAB Sertraline (Zoloft) 50 Mg Tab 50 MG PO DAILY, TAB Discontinued Medications: Cephalexin Monohydrate (Keflex) 500 Mg Cap 500 MG PO QID, #40 CAP Discharge Exam Patient was resting comfortably this morning with her baby [place]. Patient had no complaints overnight reported pain was resolving 4/10, eating, voiding, stooling appropriately. Review of Systems: Constitutional: No fever, No chills, No sweats ENT: No hearing loss Respiratory: No cough, No sputum, No wheezing, No shortness of breath Cardiovascular: No chest pain Abdomen: No pain, No nausea, No vomiting, No diarrhea Musculoskeletal: No joint pain, No muscle pain Genitourinary - Female: No dysuria, No urinary frequency Neurologic: No weakness Psychiatric: No depression symptoms Endocrine: No fatigue, No excessive thirst Physical Exam: General Appearance: WD/WN, no apparent distress Eyes: normal inspection, EOMI, sclerae normal ENT: hearing grossly normal Neck: supple, no adenopathy, thyroid normal, no JVD, no carotid bruits, trachea midline Respiratory/Chest: chest non-tender, lungs clear, normal breath sounds, no respiratory distress, no accessory muscle use Cardiovascular: regular rate, rhythm, no edema, no gallop, no JVD, no murmur , normal peripheral pulses Abdomen / GI: normal bowel sounds, non tender, soft, no organomegaly, no pulsatile mass, occult blood negative Extremities: normal inspection, no calf tenderness, normal capillary refill , no pedal edema Neurologic/Psychiatric: alert, normal mood/affect, normal reflexes, oriented x 3 Skin: normal color, warm/dry, no rash Lymphatic: no adenopathy Hospital Course Ms. Tay is a 32 y/o female with PMHx of Migraine Headaches and Depression who is a direct admission for R Lactational Breast Mastitis x 2 days. Patient is currently . Lactational Mastitis of R Breast: Following protocols per journal of medicine - Breast were significantly engorged and severely painful to light touch -appreciated an area of fluctuance at this time but a thorough breast exam was difficult in the setting of pain. -obtained u/s negative for abscess - In Ed had Toradol 15 mg IV x 1 dose now and [place] 10 mg x 1 dose - Both are alright to use with but limited research with Toradol and recommend pumping and dumping for at least 4 hours after administration - Discussed with OB staff and commercial solar sales consultant - implemented a breast pump to drain breast - pump was provided and she is used it - Patient may safely continue to breastfeed which was encouraged or pump/dump - At this time would not consider Abx failure as Keflex was just initiated yesterday transitioned to Rocephin as inpatient 1 g IV daily will be instituted at this time which again is safe with - if no improvement may need to cover MRSA. Patient does report x 11 years ago she was bit by a spider and at that time was concerned for MRSA -cx breast milk for MRSA showed coag - staph -U/s negative for abscess - Was given [place] 5/325 1 tab for pain<5 2 tabs for pain >5 - safe breast feeding recommended protocols journal breast feeding medicine - Maintained a bowel regimen dispo home Total Time Spent: Less than 30 minutes This includes examination of the patient, discharge planning, medication reconciliation, and communication with other providers. Discharge Instructions Please refer to the electronic Patient Visit Report (Discharge Instructions) for additional information. Follow-Up Should symptoms worsen or return advised to contact pcp or procede to the ER Additional Copies To Justus Pérez M.D.
== END 2018-02-24 14:59 | disposition home or self-care (01) | DRG 872 ==
LOC: C.4E 14:29
PROVIDERS: ADMIT Family Medicine; ATTEND Family Medicine
DX: A41.9 Sepsis, unspecified organism (principal); O91.23 Nonpurulent mastitis associated with lactation; G43.909 Migraine, unspecified, not intractable, without status migrainosus; Z82.49 Family history of ischemic heart disease and other diseases of the circulatory system; Z88.2 Allergy status to sulfonamides; B95.8 Unspecified staphylococcus as the cause of diseases classified elsewhere; F32.9 Major depressive disorder, single episode, unspecified